=== PATIENT | female | born 1955 | race Caucasian/White ===

== ENCOUNTER 2016-10-22 21:23 | Emergency (ER) | payer OTHER ==
[2016-10-22 21:42] VITALS: BP 93/65; PULSE 97; O2SAT 95
--- NOTE | 2016-10-22 21:44 | ERPHSYRPT ---
- History of Present Illness Time Seen by Provider: 10/22/16 21:39 Source: patient Exam Limitations: no limitations Physician History: The patient is a 61-year-old female comes in complaining of a left earache for [address] Cabral on October 15 and was given drops to put in her ears. The pain has not gone away. She has a past medical history of hypothyroidism, COPD PD, GERD, and high cholesterol. Timing/Duration: gradual onset ENT Location: ear (L) Prearrival Treatment: prescription meds Modifying Factors: Improves With: nothing Associated Symptoms: ear pain (L) Allergies/Adverse Reactions: No Known Drug Allergies Allergy (Verified 08/02/16 06:52) Home Medications: Simvastatin 20Mg [Zocor 20Mg] 20 mg PO DAILY 02/28/12 [History] Hydrocodone Bit/Acetaminophen [Hydrocodon-Acetaminophn 10-325] 1 each PO Q6H PRN PRN 01/08/16 [History] Ipratropium/Albuterol Sulfate [Combivent Inhaler] 1 puff IH BID 01/08/16 [ History] Levothyroxine Sodium 50 Mcg [Synthroid 50 Mcg] 50 mcg PO DAILY 01/08/16 [ History] Potassium Chloride 8 meq PO DAILY 01/08/16 [History] Quetiapine Fumarate [Seroquel] 600 mg PO HS 01/08/16 [History] Venlafaxine HCl [Venlafaxine HCl ER] 150 mg PO DAILY 01/12/16 [History] Dicyclomine HCl [Bentyl] 10 mg PO TID 05/27/16 [History] Hx Tetanus, Diphtheria Vaccination/Date Given: Yes Hx Influenza Vaccination/Date Given: Yes Hx Pneumococcal Vaccination/Date Given: Yes - Review of Systems Constitutional: No Fever, No Chills Eyes: No Symptoms Ears, Nose, & Throat: Other (left ear pain) Respiratory: No Cough, No Dyspnea Cardiac: No Chest Pain, No Edema, No Syncope Abdominal/Gastrointestinal: No Abdominal Pain, No Nausea, No Vomiting, No Diarrhea Genitourinary Symptoms: No Dysuria Musculoskeletal: No Symptoms Skin: No Rash Neurological: No Dizziness, No Focal Weakness, No Sensory Changes Psychological: No Symptoms Endocrine: No Symptoms Hematologic/Lymphatic: No Symptoms Immunological/Allergic: No Symptoms All Other Systems: Reviewed and Negative - Past Medical History Pertinent Past Medical History: Yes Neurological History: No Pertinent History ENT History: No Pertinent History Cardiac History: High Cholesterol Respiratory History: Asthma Endocrine Medical History: Hypothyroidism Musculoskeletal History: Arthritis, Fractures, Other GI Medical History: Gallbladder Disease, GI Bleed, Hemorrhoids, Other History: No Pertinent History Psycho-Social History: Bipolar, Depression Female Reproductive Disorders: No Pertinent History Other Medical History: BACK AND LEG PAIN - Past Surgical History Past Surgical History: Yes Neuro Surgical History: No Pertinent History Cardiac: No Pertinent History Respiratory: No Pertinent History Gastrointestinal: Hernia Repair Genitourinary: No Pertinent History Musculoskeletal: Orthopedic Surgery Female Surgical History: No Pertinent History Other Surgical History: right ankle, - Social History Smoking Status: Never smoker Exposure to second hand smoke: Yes Alcohol Use: None Drug Use: none Patient Lives Alone: No Significant Family History: no pertinent family hx - Female History Hx Now: No - Physical Exam General Appearance: no apparent distress, alert Eye Exam: bilateral eye: normal inspection Ear Exam: right ear: auricle normal, canal normal, TM normal, left ear: TM bulging Nasal Exam: normal inspection Throat Exam: pharynx normal, moist mucus membranes, No tonsillar exudate Neck Exam: supple Cardiovascular/Respiratory Exam: normal breath sounds, regular rate/rhythm Abdominal Exam: non-tender, soft Neurologic Exam: alert, oriented x 3, sensation nml, No motor deficits Skin Exam: normal color, warm, dry SpO2 Interpretation: normal - Progress Progress: unchanged Counseled pt/family regarding: diagnosis - Departure Time of Disposition: 21:46 Departure Disposition: Home Clinical Impression: Otitis media Condition: Stable Critical Care Time: No Prescriptions: Amoxicillin/Potassium Clav [Augmentin 875-125 Tablet] 875 mg PO BID #20 tablet
[2016-10-22] MEDS ORDERED: Augmentin 875-125 Tablet PO ONE (21:48)
[2016-10-22] MEDS ORDERED: Augmentin 875-125 Tablet ONE (21:52)
== END 2016-10-22 22:10 | disposition home or self-care (01) ==
LOC: ED 21:23
DX: H66.92 Otitis media, unspecified, left ear (principal)
CPT/HCPCS: 99283; A9270-GY

== ENCOUNTER 2017-01-06 21:21 | Emergency (ER) | payer OTHER ==
[2017-01-06 21:55] LABS: BASOPHIL % 0.2 % (0.0-0.4); Eosinophil % 0.5 % (0.00-5.0); Granulocytes % 62.7 % (36.0-66.0); Lymphocytes % 25.8 % (24.0-44.0); Mean Cell Volume 94.4 fl (78-100); Mean Platelet Volume 10.2 fl (6-9.5); Monocytes % 10.8 % (0.0-12.0); Platelet Count 331 K/mm3 (150-450); Red Blood Count 3.75 M/mm3 (4.1-5.4); Red Cell Distribution Width 14.2 % (11.5-14.0); White Blood Count 10.5 K/mm3 (4.0-10.5)
[2017-01-06 21:56] LABS: Mean Corpuscular Hemoglobin 29.8 pg (26-32)
--- NOTE | 2017-01-06 22:05 | ERPHSYRPT ---
- History of Present Illness Time Seen by Provider: 01/06/17 21:37 Source: patient, family (son) Patient Subjective Stated Complaint: Pts family sts pt has had trouble with bipolar disorder x 7 months with decreased medication effectiveness. Son sts that pt has been manic for 12 days. Pt sts she has not slept at all in 12 days. Sts aviation neuropsychologist that was seeing her has been out on medical leave and the person seeing her now has only increased her meds. Family sts medications are ineffective. Son sts he lives with her. Also sts leg pain bilat from a door falling on her - family unsure of when this occurred. Triage Nursing Assessment: Pt alert, oriented, able to answer questions appropriately. Skin p/w/d, resps non-labored. Pt hyperverbal, unable to lay still. Pt with repetitive speech. Ambulatory to tx room, steady gait from wheelchair to bed noted. Physician History: CC: manic Hx: 61 y/o patient of Dr Cabral and [facility] with hx of bipolar disorder. She has been on meds thru [facility] but not sure names. States has not taken meds for the past 6 weeks. She has not been sleeping at all for the past 13 days. She has talked constantly, not making sense. Rambling speech. Son brought her for mental health evaluation as he knows she needs to be on some sort of medication. Severity of Symptoms-Max: moderate Severity of Symptoms-Current: moderate Allergies/Adverse Reactions: No Known Drug Allergies Allergy (Verified 08/02/16 06:52) Home Medications: Simvastatin 20Mg [Zocor 20Mg] 20 mg PO DAILY 02/28/12 [History] Hydrocodone Bit/Acetaminophen [Hydrocodon-Acetaminophn 10-325] 1 each PO Q6H PRN PRN 01/08/16 [History] Ipratropium/Albuterol Sulfate [Combivent Inhaler] 1 puff IH BID 01/08/16 [ History] Levothyroxine Sodium 50 Mcg [Synthroid 50 Mcg] 50 mcg PO DAILY 01/08/16 [ History] Potassium Chloride 8 meq PO DAILY 01/08/16 [History] Quetiapine Fumarate [Seroquel] 600 mg PO HS 01/08/16 [History] Venlafaxine HCl [Venlafaxine HCl ER] 150 mg PO DAILY 01/12/16 [History] Dicyclomine HCl [Bentyl] 10 mg PO TID 05/27/16 [History] Hx Tetanus, Diphtheria Vaccination/Date Given: Yes Hx Influenza Vaccination/Date Given: Yes Hx Pneumococcal Vaccination/Date Given: Yes Immunizations Up to Date: Yes - Past Medical History Pertinent Past Medical History: Yes Neurological History: No Pertinent History ENT History: No Pertinent History Cardiac History: High Cholesterol Respiratory History: Asthma Endocrine Medical History: Hypothyroidism Musculoskeletal History: Arthritis, Fractures, Other GI Medical History: Gallbladder Disease, GI Bleed, Hemorrhoids, Other History: No Pertinent History Psycho-Social History: Bipolar, Depression Female Reproductive Disorders: No Pertinent History Other Medical History: BACK AND LEG PAIN - Past Surgical History Past Surgical History: Yes Neuro Surgical History: No Pertinent History Cardiac: No Pertinent History Respiratory: No Pertinent History Gastrointestinal: Hernia Repair Genitourinary: No Pertinent History Musculoskeletal: Orthopedic Surgery Female Surgical History: No Pertinent History Other Surgical History: right ankle, - Social History Smoking Status: Never smoker Exposure to second hand smoke: No Alcohol Use: None Drug Use: none Patient Lives Alone: No Significant Family History: no pertinent family hx - Female History Hx Now: No - Review of Systems Constitutional: No Fever, No Chills Eyes: No Vision Changes Cardiac: No Chest Pain Abdominal/Gastrointestinal: No Abdominal Pain, No Vomiting Skin: No Rash Neurological: No Headache Psychological: Emotional Lability, Mood Changes, No Suicidal Ideations All Other Systems: Unable due to dementia (rambling disorganized speech) - Nursing Vital Signs Nursing Vital Signs: Initial Vital Signs Temperature 99.2 F Temperature Source Oral Pulse Rate 66 Respiratory Rate 16 Blood Pressure [Right Arm] 138/75 Pain Intensity 0 - Physical Exam General Appearance: alert, thin Eyes, Ears, Nose, Throat Exam: moist mucous membranes Neck Exam: normal inspection, supple Respiratory Exam: normal breath sounds Cardiovascular Exam: regular rate/rhythm Gastrointestinal/Abdominal Exam: soft, No tenderness, No distention Neurological Exam: alert Behavior/Eye Contact/Speech: alert & cooperative Thoughts/Hallucinations: delusions, flight of ideas, grandiose Skin Exam: warm, dry, rash (picking sores, scratches) SpO2 Interpretation: normal SpO2: 99 Oxygen Delivery: Room Air Comments: Disorganized thoughts, rambling pressured speech, appears manic. - Course Nursing assessment & vital signs reviewed: Yes EKG Interpreted by Me: RATE (49), Sinus Shai, NORMAL AXIS, NORMAL INTERVALS ( QTc 408), NORMAL QRS, NORMAL ST-T Ordered Tests: Active Orders 24 hr Category Date Time Status Clean Catch Urine Specimen STAT Care 01/06/17 21:37 Inactive EKG-ER Only STAT Care 01/06/17 21:37 Active Psychiatric Evaluation STAT Care 01/06/17 21:43 Active cath [Cath for Specimen-Straight] STAT Care 01/06/17 22:00 Active ACETAMINOPHEN Stat Lab 01/06/17 21:51 Completed CBC W DIFF Stat Lab 01/06/17 21:51 Completed CMP Stat Lab 01/06/17 21:51 Completed CULTURE,URINE Stat Lab 01/06/17 22:04 Received Ethyl Alcohol,Urine Stat Lab 01/06/17 22:04 Completed UA W/ MICROSCOPIC Stat Lab 01/06/17 22:04 Completed Urine Triage Profile Stat Lab 01/06/17 22:04 Completed Medication Summary Discontinued Medications Generic Name Dose Route Start Last Admin Trade Name Freq PRN Reason Stop Dose Admin Hydroxyzine HCl 25 mg 01/06/17 23:51 01/06/17 23:57 Atarax 25 Mg PO 01/06/17 23:52 25 mg STAT ONE Administration Hydroxyzine HCl Confirm 01/06/17 23:53 Atarax 25 Mg Administered 01/06/17 23:54 Dose 25 mg .ROUTE .STK-MED ONE Olanzapine 5 mg 01/06/17 23:51 01/06/17 23:58 Zyprexa Zydis 5 Mg PO 01/06/17 23:52 5 mg STAT ONE Administration Olanzapine Confirm 01/06/17 23:53 Zyprexa Zydis 5 Mg Administered 01/06/17 23:54 Dose 5 mg PO .STK-MED ONE Potassium Bicarbonate 50 meq 01/06/17 22:48 01/06/17 23:03 K-Lyte 25 Meq PO 01/06/17 22:49 50 meq STAT ONE Administration Potassium Bicarbonate Confirm 01/06/17 23:02 K-Lyte 25 Meq Administered 01/06/17 23:03 Dose 50 meq .ROUTE .STK-MED ONE Lab/Rad Data: Laboratory Result Diagrams 01/06/17 21:51 01/06/17 21:51 Laboratory Results 01/06/17 01/06/17 01/06/17 Range/Units 22:04 22:04 22:04 WBC (4.0-10.5) K/mm3 RBC (4.1-5.4) M/mm3 Hgb (12.0-16.0) gm/dl Hct (35-47) % MCV (78-100) fl MCH (26-32) pg MCHC (32-36) g/dl RDW (11.5-14.0) % Plt Count (150-450) K/mm3 MPV (6-9.5) fl Gran % (36.0-66.0) % Lymphocytes % (24.0-44.0) % Monocytes % (0.0-12.0) % Eosinophils % (0.00-5.0) % Basophils % (0.0-0.4) % Basophils # (0-0.4) Sodium (136-145) mEq/L Potassium (3.5-5.1) mEq/L Chloride (98-107) mEq/L Carbon Dioxide (21-32) mEq/L Anion Gap (5-15) MEQ/L BUN (9-20) mg/dL Creatinine (0.55-1.30) mg/dl Estimated GFR ML/MIN Glucose (70-110) MG/DL Calcium (8.5-10.1) mg/dL Total Bilirubin (0.2-1.0) mg/dL AST (15-37) U/L ALT (12-78) U/L Alkaline Phosphatase (46-116) U/L Serum Total Protein (6.4-8.2) gm/dL Albumin (3.4-5.0) g/dL Ur Collection Type CATH Urine Color YELLOW (YELLOW) Urine Appearance CLEAR (CLEAR) Urine pH 6.0 6.0 (5-6) Ur Specific [place] >=1.030 (1.005-1.025) Urine Protein 30 (Negative) Urine Glucose (UA) NEGATIVE (NEGATIVE) mg/dL Urine Ketones TRACE (NEGATIVE) Urine Nitrite NEGATIVE (NEGATIVE) Urine Bilirubin NEGATIVE (NEGATIVE) Urine Urobilinogen 1 (0-1) mg/dL Urine WBC (Auto) NEGATIVE (NEGATIVE) Urine RBC (Auto) TRACE-INTACT (0-5) Jose/ul Urine Microscopic RBC 0-2 (0-2) /HPF Ur Epithelial Cells RARE (FEW) /HPF Urine Bacteria FEW (NEGATIVE) /HPF Urine Mucus SLIGHT (NEGATIVE) /HPF Urine Opiates Level NEG. (NEGATIVE) Ur Methadone NEG. (NEGATIVE) Acetaminophen (10-30) ug/ml Urine Barbiturates NEG. (NEGATIVE) Ur Phencyclidine (PCP) NEG. (NEGATIVE) Urine Amphetamine NEG. (NEGATIVE) U Benzodiazepine Level NEG. (NEGATIVE) Urine Cocaine NEG. (NEGATIVE) Urine Marijuana (THC) NEG. (NEGATIVE) Urine Ethyl Alcohol 4 (0.00-20) mg/dl Specimen Received [id number] 01/06/17 01/06/17 Range/Units 21:51 21:51 WBC 10.5 (4.0-10.5) K/mm3 RBC 3.75 L (4.1-5.4) M/mm3 Hgb 11.2 L (12.0-16.0) gm/dl Hct 35.4 (35-47) % MCV 94.4 (78-100) fl MCH 29.8 (26-32) pg MCHC 31.6 L (32-36) g/dl RDW 14.2 H (11.5-14.0) % Plt Count 331 (150-450) K/mm3 MPV 10.2 H (6-9.5) fl Gran % 62.7 (36.0-66.0) % Lymphocytes % 25.8 (24.0-44.0) % Monocytes % 10.8 (0.0-12.0) % Eosinophils % 0.5 (0.00-5.0) % Basophils % 0.2 (0.0-0.4) % Basophils # 0.02 (0-0.4) Sodium 144 (136-145) mEq/L Potassium 3.0 L* (3.5-5.1) mEq/L Chloride 108 H (98-107) mEq/L Carbon Dioxide 25.2 (21-32) mEq/L Anion Gap 11.5 (5-15) MEQ/L BUN 16 (9-20) mg/dL Creatinine 1.22 (0.55-1.30) mg/dl Estimated GFR 48 ML/MIN Glucose 120 H (70-110) MG/DL Calcium 9.2 (8.5-10.1) mg/dL Total Bilirubin 0.70 (0.2-1.0) mg/dL AST 45 H (15-37) U/L ALT 28 (12-78) U/L Alkaline Phosphatase 74 (46-116) U/L Serum Total Protein 7.4 (6.4-8.2) gm/dL Albumin 3.7 (3.4-5.0) g/dL Ur Collection Type Urine Color (YELLOW) Urine Appearance (CLEAR) Urine pH (5-6) Ur Specific [place] (1.005-1.025) Urine Protein (Negative) Urine Glucose (UA) (NEGATIVE) mg/dL Urine Ketones (NEGATIVE) Urine Nitrite (NEGATIVE) Urine Bilirubin (NEGATIVE) Urine Urobilinogen (0-1) mg/dL Urine WBC (Auto) (NEGATIVE) Urine RBC (Auto) (0-5) Jose/ul Urine Microscopic RBC (0-2) /HPF Ur Epithelial Cells (FEW) /HPF Urine Bacteria (NEGATIVE) /HPF Urine Mucus (NEGATIVE) /HPF Urine Opiates Level (NEGATIVE) Ur Methadone (NEGATIVE) Acetaminophen < 2.0 L (10-30) ug/ml Urine Barbiturates (NEGATIVE) Ur Phencyclidine (PCP) (NEGATIVE) Urine Amphetamine (NEGATIVE) U Benzodiazepine Level (NEGATIVE) Urine Cocaine (NEGATIVE) Urine Marijuana (THC) (NEGATIVE) Urine Ethyl Alcohol (0.00-20) mg/dl Specimen Received - Progress Progress Note: 01/06/17 22:08 Spoke to [facility]. No beds there so will get tele consult. Also no beds available at [facility]. 01/06/17 23:52 The patient was seen by [facility] via tele consult. She was somewhat uncooperative. They advised she appears gravely disabled and needs psychiatric attention. Pt upset and angry. They advised emergency skilled nursing for control of her topher and bipolar disorder. Zydis and vistaril given here. 01/07/17 00:01 Spoke to son Yasmani who agrees with plan. 01/07/17 01:42 Pt calm after zydis and vistaril po. Await [facility] 01/07/17 02:58 Patient accepted at [facility] per Dr Lorena Palmer. Counseled pt/family regarding: diagnosis, need for follow-up - Departure Time of Disposition: 02:59 Departure Disposition: Transfer ([facility]) Clinical Impression: Manic episode, severe, without psychotic symptoms Bipolar disorder (manic depression) Qualifiers: Active/Remission status: currently active Current bipolar episode type: manic Current episode severity: moderate Qualified Code(s): F31.12 - Bipolar disorder , current episode manic without psychotic features, moderate Condition: Fair Critical Care Time: No Referrals: DESTINY CABRAL [Primary Care Provider] -
[2017-01-06 22:19] LABS: COMPLETE URINE MICROSCOPIC? YES; Collection Type CATH; Mucus SLIGHT /HPF (NEGATIVE)
[2017-01-06 22:20] LABS: ADD URINE CULTURE? YES (NO); Bacteria FEW /HPF (NEGATIVE); Epithelial Cells RARE /HPF (FEW)
[2017-01-06 22:26] LABS: ALBUMIN 3.7 g/dL (3.4-5.0); ALKALINE PHOSPHATASE 74 U/L (46-116); ANION GAP 11.5 MEQ/L (5-15); BLOOD UREA NITROGEN 16 mg/dL (9-20); CHLORIDE 108 mEq/L (98-107); Carbon Dioxide 25.2 mEq/L (21-32); Glucose 120 MG/DL (70-110); SGOT/AST 45 U/L (15-37); SGPT/ALT 28 U/L (12-78); SODIUM 144 mEq/L (136-145); Total Protein 7.4 gm/dL (6.4-8.2)
[2017-01-06 22:45] LABS: ACETAMINOPHEN < 2.0 ug/ml (10-30)
[2017-01-06] MEDS ORDERED: K-LYTE 25 MEQ PO ONE (22:48)
[2017-01-06] MEDS ORDERED: K-LYTE 25 MEQ ONE (23:02)
[2017-01-06] MEDS ORDERED: Zyprexa Zydis 5 MG PO ONE ×2 (23:51→23:53)
[2017-01-06] MEDS ORDERED: ATARAX 25 MG PO ONE (23:51)
[2017-01-06] MEDS ORDERED: ATARAX 25 MG ONE (23:53)
[2017-01-07 01:59] VITALS: PULSE 66
[2017-01-07 04:59] VITALS: BP 87/50; O2SAT 96
== END 2017-01-07 03:55 | disposition short-term general hospital (02) ==
LOC: ED 21:21
DX: F31.12 Bipolar disorder, current episode manic without psychotic features, moderate (principal)
CPT/HCPCS: 36415; 80053; 80307; 80320; 81000; 83986; 85025; 87086; 90791; 93005; 99285; G0481; P9612; Q3014; A9270-GY

== ENCOUNTER 2018-01-05 19:11 | Emergency (ER) | payer OTHER ==
[2018-01-05 19:30] VITALS: BP 114/86; PULSE 78; O2SAT 98
--- NOTE | 2018-01-05 19:42 | ERPHSYRPT ---
- History of Present Illness Time Seen by Provider: 01/05/18 19:41 Source: patient Exam Limitations: no limitations Patient Subjective Stated Complaint: pt sustained laceration to right second finger distal to mip joint; pt states she was washing dishes and cut her finger on a glass at approx 1800. Triage Nursing Assessment: pt a&o x3; skin p, w, & d; bleeding controlled upon arrival per bandage applied by ems at home; ambulated to room per self; no other distress noted. Physician History: The patient is a 62-year-old right-handed female who complains of cutting her skin on her right index finger on a piece of glass while washing dishes prior to arrival. It kept bleeding so she wanted to come in. She does not know when her last tetanus vaccination was given. She denies numbness or tingling. Her past medical history is significant for COPD, kidney disease, GERD, hypothyroidism, and bipolar. Timing/Duration: today, hour(s) (1), sudden Quality: other (laceration) Severity: mild Location: hands (right index finger) Possible Causes: other (glass) Associated Symptoms: denies symptoms Allergies/Adverse Reactions: No Known Drug Allergies Allergy (Verified 01/05/18 19:30) Home Medications: Simvastatin 20Mg [Zocor 20Mg] 20 mg PO DAILY 02/28/12 [History] Hydrocodone Bit/Acetaminophen [Hydrocodon-Acetaminophn 10-325] 1 each PO Q6H PRN PRN 01/08/16 [History] Ipratropium/Albuterol Sulfate [Combivent Inhaler] 1 puff IH BID 01/08/16 [ History] Levothyroxine Sodium 50 Mcg [Synthroid 50 Mcg] 50 mcg PO DAILY 01/08/16 [ History] Potassium Chloride 8 meq PO DAILY 01/08/16 [History] Quetiapine Fumarate [Seroquel] 600 mg PO HS 01/08/16 [History] Venlafaxine HCl [Venlafaxine HCl ER] 150 mg PO DAILY 01/12/16 [History] Dicyclomine HCl [Bentyl] 10 mg PO TID 05/27/16 [History] Hx Tetanus, Diphtheria Vaccination/Date Given: No Hx Influenza Vaccination/Date Given: Yes Hx Pneumococcal Vaccination/Date Given: Yes Immunizations Up to Date: No - Review of Systems Constitutional: No Fever, No Chills Eyes: No Symptoms Ears, Nose, & Throat: No Symptoms Respiratory: No Cough, No Dyspnea Cardiac: No Chest Pain, No Edema, No Syncope Abdominal/Gastrointestinal: No Abdominal Pain, No Nausea, No Vomiting, No Diarrhea Genitourinary Symptoms: No Dysuria Musculoskeletal: No Back Pain, No Neck Pain Skin: Other (laceration) Neurological: No Dizziness, No Focal Weakness, No Sensory Changes Psychological: No Symptoms Endocrine: No Symptoms Hematologic/Lymphatic: No Symptoms Immunological/Allergic: No Symptoms All Other Systems: Reviewed and Negative - Past Medical History Pertinent Past Medical History: Yes Neurological History: No Pertinent History ENT History: No Pertinent History Cardiac History: High Cholesterol Respiratory History: Asthma Endocrine Medical History: Hypothyroidism Musculoskeletal History: Arthritis, Fractures, Other GI Medical History: Gallbladder Disease, GI Bleed, Hemorrhoids, Other History: No Pertinent History Psycho-Social History: Bipolar, Depression Female Reproductive Disorders: No Pertinent History Other Medical History: BACK AND LEG PAIN - Past Surgical History Past Surgical History: Yes Neuro Surgical History: No Pertinent History Cardiac: No Pertinent History Respiratory: No Pertinent History Gastrointestinal: Hernia Repair Genitourinary: No Pertinent History Musculoskeletal: Orthopedic Surgery Female Surgical History: No Pertinent History Other Surgical History: right ankle, - Social History Smoking Status: Never smoker Exposure to second hand smoke: No Alcohol Use: None Drug Use: none Patient Lives Alone: No Significant Family History: no pertinent family hx - Female History Hx Last Menstrual Period: postmenopausal - Nursing Vital Signs Nursing Vital Signs: Initial Vital Signs Temperature 98 F 01/05/18 19:23 Pulse Rate 78 01/05/18 19:23 Respiratory Rate 18 01/05/18 19:23 Blood Pressure 114/86 01/05/18 19:23 O2 Sat by Pulse Oximetry 98 01/05/18 19:23 Pain Scale Pain Intensity 0 - Physical Exam General Appearance: no apparent distress, alert Eye Exam: PERRL/EOMI, eyes nml inspection Ears, Nose, Throat Exam: normal ENT inspection, pharynx normal, moist mucous membranes Neck Exam: normal inspection, non-tender, supple, full range of motion Respiratory Exam: normal breath sounds, lungs clear, No respiratory distress Cardiovascular Exam: regular rate/rhythm, normal heart sounds Gastrointestinal/Abdomen Exam: soft, mass, No tenderness Pelvic Exam: not done Rectal Exam: not done Back Exam: normal inspection, normal range of motion, No CVA tenderness, No vertebral tenderness Extremity Exam: normal inspection, normal range of motion Neurologic Exam: alert, oriented x 3, cooperative, normal mood/affect, sensation nml, No motor deficits Skin Exam: laceration (small avulsion laceration over right 2nd digit IP joint.) SpO2 Interpretation: normal SpO2: 98 Oxygen Delivery: Room Air - Progress Progress: unchanged Progress Note: 01/05/18 20:08 avulsion laceration that does not require sutures. - Departure Time of Disposition: 20:08 Departure Disposition: Home Clinical Impression: Laceration Condition: Stable Critical Care Time: No Referrals: JULES BRIGGS [Primary Care Provider] - Additional Instructions: You have a small laceration over your right index finger. No stitches were given. Keep the bandage on for 1-2 days. After the bandage is removed, apply a waterproof bandage over the wound daily until healed. You were also given a tetanus vaccination in the ER. Follow-up with your primary care doctor in 1-2 days.
[2018-01-05] MEDS ORDERED: Adacel Vial IM ONE ×2 (20:09→20:10)
== END 2018-01-05 20:19 | disposition home or self-care (01) ==
LOC: ED 19:11
DX: S61.210A Laceration without foreign body of right index finger without damage to nail, initial encounter (principal); W25.XXXA Contact with sharp glass, initial encounter; Y93.G1 Activity, food preparation and clean up; Y92.000 Kitchen of unspecified non-institutional (private) residence as the place of occurrence of the external cause
CPT/HCPCS: 90471; 90715; 99283

== ENCOUNTER 2018-11-02 13:14 | Observation (INO) | payer OTHER ==
[2018-11-02] MEDS ORDERED: Sodium Chloride 0.9% 1000 ML 1,000 ML IV SCH (13:45)
--- NOTE | 2018-11-02 13:51 | ERPHSYRPT ---
- History of Present Illness Time Seen by Provider: 11/02/18 13:34 Historian: family, other (son) Exam Limitations: other (pt has severe bipolar dx, depression, has very minimal verbal contact for long time according to her son.) Patient Subjective Stated Complaint: pt here for constipation for a a month now , she laxative friday and sat, and has had one bm today, and pt was dirty with stool when arrived, Triage Nursing Assessment: pt is nonverbal to staff, son states she is going through bipolar depression and son states her meds are not working and she has apt with mental health on the 4th Physician History: Pt apparently did not have bowel movement for 1.5 months, since she was discharged from Psychiatry, where she was treated for severe Bipolar disease and Depression. Her son has been taking care of her, gave her OTC laxative 3 days ago, and had some stool this morning in the shower. He denies vomiting, fever, patient denies abdominal pain. She is responding verbally, but very limited. Son gloria bloody stools, urinary complaints, other issues, she has been eating and drinking apparently. Timing/Duration: week(s) (6) Activities at Onset: none Quality: other (denies pain) Severity of Pain-Max: none Severity of Pain-Current: none Modifying Factors: Improves With: nothing Associated Symptoms: other (constipation) Previous symptoms: no prior history Allergies/Adverse Reactions: No Known Drug Allergies Allergy (Verified 11/02/18 13:29) Home Medications: Simvastatin 20Mg [Zocor 20Mg] 20 mg PO DAILY 02/28/12 [History] Ipratropium/Albuterol Sulfate [Combivent Inhaler] 1 puff IH BID 01/08/16 [ History] Levothyroxine Sodium 50 Mcg [Synthroid 50 Mcg] 88 mcg PO DAILY 01/08/16 [ History] Dicyclomine HCl [Bentyl] 10 mg PO TID 05/27/16 [History] Divalproex Sodium 250 mg [Divalproex DR 250 mg Tab] 11/02/18 [History] Lurasidone HCl [Latuda] 120 mg DAILY 11/02/18 [History] Quetiapine Fumarate 200 mg DAILY 11/02/18 [History] Sertraline HCl 100 mg DAILY 11/02/18 [History] Hx Tetanus, Diphtheria Vaccination/Date Given: No Hx Influenza Vaccination/Date Given: Yes Hx Pneumococcal Vaccination/Date Given: No Immunizations Up to Date: Yes - Review of Systems Constitutional: No Symptoms Abdominal/Gastrointestinal: Constipation All Other Systems: Unable due to condition (chronic mental condition, severe psychiatric disorder, very limited verbal responses, history taken from her son. ) - Past Medical History Pertinent Past Medical History: Yes Neurological History: No Pertinent History ENT History: No Pertinent History Cardiac History: High Cholesterol Respiratory History: Asthma Endocrine Medical History: Hypothyroidism Musculoskeletal History: Arthritis, Fractures, Other GI Medical History: Gallbladder Disease, GI Bleed, Hemorrhoids, Other History: No Pertinent History Psycho-Social History: Bipolar, Depression Female Reproductive Disorders: No Pertinent History Other Medical History: BACK AND LEG PAIN - Past Surgical History Past Surgical History: Yes Neuro Surgical History: No Pertinent History Cardiac: No Pertinent History Respiratory: No Pertinent History Gastrointestinal: Hernia Repair Genitourinary: No Pertinent History Musculoskeletal: Orthopedic Surgery Female Surgical History: No Pertinent History Other Surgical History: right ankle, - Social History Smoking Status: Never smoker Exposure to second hand smoke: Yes Alcohol Use: None Drug Use: none Patient Lives Alone: No Significant Family History: no pertinent family hx - Female History Hx Last Menstrual Period: post Hx Now: No - Nursing Vital Signs Nursing Vital Signs: Initial Vital Signs Temperature 97.2 F 11/02/18 13:18 Pulse Rate 75 11/02/18 13:18 Respiratory Rate 16 11/02/18 13:18 Blood Pressure 135/86 11/02/18 13:18 O2 Sat by Pulse Oximetry 96 11/02/18 13:18 Pain Scale Pain Intensity 0 - Physical Exam General Appearance: no apparent distress Eye Exam: eyes nml inspection Ears, Nose, Throat Exam: normal ENT inspection, pharynx normal, moist mucous membranes Neck Exam: normal inspection, non-tender, supple, No JVD Respiratory Exam: normal breath sounds, lungs clear, No chest tenderness Cardiovascular Exam: regular rate/rhythm, murmur (2/6 left parasternal systolic murmur) Gastrointestinal/Abdomen Exam: soft, normal bowel sounds, No tenderness, No distention, No mass, No guarding, No ecchymosis, No rebound, No hernia, No organomegaly Rectal Exam: normal rectal tone, other (no fecal impaction, large amount of soft , dark, green stool in rectum), No mass, No black stool, No blood, No tenderness Extremity Exam: normal inspection Neurologic Exam: alert, other (severely withdrawn, with very limited verbal contact.) Skin Exam: normal color, warm, dry, No rash, No petechiae Lymphatic Exam: No adenopathy SpO2 Interpretation: normal SpO2: 96 O2 Delivery: Room Air - Course Nursing assessment & vital signs reviewed: Yes - CT Exams Abdomen/Pelvis CT Interpretation: Negative, Tele-radiologist Report, Other (fecal impaction) Ordered Tests: Active Orders 24 hr Category Date Time Status IV Insertion STAT Care 11/02/18 13:43 Active ABDOMEN AND PELVIS W/0 CONTRAS [CT] Stat Exams 11/02/18 14:19 Completed CBC W DIFF Stat Lab 11/02/18 14:00 Completed CMP Stat Lab 11/02/18 14:00 Completed LIPASE Stat Lab 11/02/18 14:00 Completed Lactic Acid Stat Lab 11/02/18 13:43 Results MAG [MAGNESIUM] Stat Lab 11/02/18 14:00 Completed Occult Blood, Other Screening Stat Lab 11/02/18 14:20 Completed PROTIME WITH INR Stat Lab 11/02/18 14:00 Completed UA W/RFX UR CULTURE Stat Lab 11/02/18 14:20 Received Urine Triage Profile Stat Lab 11/02/18 14:20 Completed Medication Summary Generic Name Dose Route Start Last Admin Trade Name Freq PRN Reason Stop Dose Admin Sodium Chloride 1,000 mls @ 100 mls/hr 11/02/18 13:45 11/02/18 15:42 Sodium Chloride 0.9% 1000 Ml IV 12/02/18 13:44 1,000 mls/hr .Q10H AMADO Infusion Potassium Chloride 20 meq in 100 mls @ 50 mls/hr 11/02/18 14:56 11/02/18 15: 21 Potassium Chloride 20 Meq In Water 100ml IV 11/02/18 16:55 50 mls/hr STAT ONE Administration Discontinued Medications Generic Name Dose Route Start Last Admin Trade Name Freq PRN Reason Stop Dose Admin Potassium Chloride Confirm 11/02/18 15:07 Potassium Chloride 20 Meq In Water 100ml Administered 11/02/18 15:08 Dose 100 mls @ ud IV .STK-MED ONE Potassium Bicarbonate 50 meq 11/02/18 15:05 11/02/18 15:21 K-Lyte 25 Meq PO 11/02/18 15:06 50 meq STAT ONE Administration Potassium Bicarbonate Confirm 11/02/18 15:07 K-Lyte 25 Meq Administered 11/02/18 15:08 Dose 50 meq .ROUTE .STK-MED ONE Potassium Chloride 40 meq 11/03/18 10:00 Potassium Chl 40 Meq/30 Ml Oral Solution PO 12/03/18 09:59 DAILY AMADO Potassium Chloride 40 meq 11/02/18 15:03 11/02/18 15:22 Klor Con 10 Meq PO 11/02/18 15:04 Not Given STAT ONE Lab/Rad Data: Laboratory Result Diagrams 11/02/18 14:00 11/02/18 14:00 Laboratory Results 11/02/18 11/02/18 11/02/18 Range/Units 14:20 14:20 14:00 WBC (4.0-10.5) K/mm3 RBC (4.1-5.4) M/mm3 Hgb (12.0-16.0) gm/dl Hct (35-47) % MCV (78-100) fl MCH (26-32) pg MCHC (32-36) g/dl RDW (11.5-14.0) % Plt Count (150-450) K/mm3 MPV (6-9.5) fl Gran % (36.0-66.0) % Eos # (Auto) (0-0.5) Absolute Lymphs (auto) (1.0-4.6) Absolute Monos (auto) (0.0-1.3) Lymphocytes % (24.0-44.0) % Monocytes % (0.0-12.0) % Eosinophils % (0.00-5.0) % Basophils % (0.0-0.4) % Absolute Granulocytes (1.4-6.9) Basophils # (0-0.4) PT (9.95-12.35) SECONDS INR (0.8-3.0) Sodium (137-145) mmol/L Potassium (3.5-5.1) mmol/L Chloride (98-107) mmol/L Carbon Dioxide (22-30) mmol/L Anion Gap (5-15) MEQ/L BUN (7-17) mg/dL Creatinine (0.52-1.04) mg/dL Estimated GFR ML/MIN Glucose (74-106) mg/dL Lactic Acid (0.4-2.0) Calcium (8.4-10.2) mg/dL Magnesium 1.9 (1.6-2.3) mg/dL Total Bilirubin (0.2-1.3) mg/dL AST (14-36) U/L ALT (0-35) U/L Alkaline Phosphatase (38-126) U/L Serum Total Protein (6.3-8.2) g/dL Albumin (3.5-5.0) g/dL Lipase (23-300) U/L Stool Occult Blood NEGATIVE (Negative) Urine Opiates Level NEGATIVE (NEGATIVE) Ur Methadone NEGATIVE (NEGATIVE) Urine Barbiturates NEGATIVE (NEGATIVE) Ur Phencyclidine (PCP) NEGATIVE (NEGATIVE) Urine Amphetamine NEGATIVE (NEGATIVE) U Benzodiazepine Level NEGATIVE (NEGATIVE) Urine Cocaine NEGATIVE (NEGATIVE) Urine Marijuana (THC) NEGATIVE (NEGATIVE) 11/02/18 11/02/18 11/02/18 Range/Units 14:00 14:00 14:00 WBC 7.2 (4.0-10.5) K/mm3 RBC 4.12 (4.1-5.4) M/mm3 Hgb 13.6 (12.0-16.0) gm/dl Hct 41.0 (35-47) % MCV 99.5 (78-100) fl MCH 33.0 H (26-32) pg MCHC 33.2 (32-36) g/dl RDW 12.6 (11.5-14.0) % Plt Count 197 (150-450) K/mm3 MPV 9.8 H (6-9.5) fl Gran % 58.7 (36.0-66.0) % Eos # (Auto) 0.03 (0-0.5) Absolute Lymphs (auto) 2.25 (1.0-4.6) Absolute Monos (auto) 0.69 (0.0-1.3) Lymphocytes % 31.2 (24.0-44.0) % Monocytes % 9.6 (0.0-12.0) % Eosinophils % 0.4 (0.00-5.0) % Basophils % 0.1 (0.0-0.4) % Absolute Granulocytes 4.24 (1.4-6.9) Basophils # 0.01 (0-0.4) PT 13.5 H (9.95-12.35) SECONDS INR 1.16 (0.8-3.0) Sodium 140 (137-145) mmol/L Potassium 2.4 L* (3.5-5.1) mmol/L Chloride 104 (98-107) mmol/L Carbon Dioxide 28 (22-30) mmol/L Anion Gap 10.8 (5-15) MEQ/L BUN 7 (7-17) mg/dL Creatinine 0.73 (0.52-1.04) mg/dL Estimated GFR > 60.0 ML/MIN Glucose 103 (74-106) mg/dL Lactic Acid (0.4-2.0) Calcium 8.9 (8.4-10.2) mg/dL Magnesium (1.6-2.3) mg/dL Total Bilirubin 0.50 (0.2-1.3) mg/dL AST 11 L (14-36) U/L ALT 11 (0-35) U/L Alkaline Phosphatase 59 (38-126) U/L Serum Total Protein 6.3 (6.3-8.2) g/dL Albumin 3.2 L (3.5-5.0) g/dL Lipase 30 (23-300) U/L Stool Occult Blood (Negative) Urine Opiates Level (NEGATIVE) Ur Methadone (NEGATIVE) Urine Barbiturates (NEGATIVE) Ur Phencyclidine (PCP) (NEGATIVE) Urine Amphetamine (NEGATIVE) U Benzodiazepine Level (NEGATIVE) Urine Cocaine (NEGATIVE) Urine Marijuana (THC) (NEGATIVE) 11/02/18 Range/Units 13:43 WBC (4.0-10.5) K/mm3 RBC (4.1-5.4) M/mm3 Hgb (12.0-16.0) gm/dl Hct (35-47) % MCV (78-100) fl MCH (26-32) pg MCHC (32-36) g/dl RDW (11.5-14.0) % Plt Count (150-450) K/mm3 MPV (6-9.5) fl Gran % (36.0-66.0) % Eos # (Auto) (0-0.5) Absolute Lymphs (auto) (1.0-4.6) Absolute Monos (auto) (0.0-1.3) Lymphocytes % (24.0-44.0) % Monocytes % (0.0-12.0) % Eosinophils % (0.00-5.0) % Basophils % (0.0-0.4) % Absolute Granulocytes (1.4-6.9) Basophils # (0-0.4) PT (9.95-12.35) SECONDS INR (0.8-3.0) Sodium (137-145) mmol/L Potassium (3.5-5.1) mmol/L Chloride (98-107) mmol/L Carbon Dioxide (22-30) mmol/L Anion Gap (5-15) MEQ/L BUN (7-17) mg/dL Creatinine (0.52-1.04) mg/dL Estimated GFR ML/MIN Glucose (74-106) mg/dL Lactic Acid 2.3 H (0.4-2.0) Calcium (8.4-10.2) mg/dL Magnesium (1.6-2.3) mg/dL Total Bilirubin (0.2-1.3) mg/dL AST (14-36) U/L ALT (0-35) U/L Alkaline Phosphatase (38-126) U/L Serum Total Protein (6.3-8.2) g/dL Albumin (3.5-5.0) g/dL Lipase (23-300) U/L Stool Occult Blood (Negative) Urine Opiates Level (NEGATIVE) Ur Methadone (NEGATIVE) Urine Barbiturates (NEGATIVE) Ur Phencyclidine (PCP) (NEGATIVE) Urine Amphetamine (NEGATIVE) U Benzodiazepine Level (NEGATIVE) Urine Cocaine (NEGATIVE) Urine Marijuana (THC) (NEGATIVE) - Progress Progress: improved Progress Note: 11/02/18 15:58 Pt was started on iv fluids, and potassium replacement, she has been afebrile, no severe pain or difficulty breathing, she has been stable, called Dr Manuel, discussed her case and current condition with him, agreed to admit her for observation. Patient and her son were informed, and agreed. Discussed with : Anu Will see patient in: hospital (observation) Counseled pt/family regarding: lab results, diagnosis, rad results - Departure Departure Disposition: Observation Clinical Impression: Fecal impaction in rectum, Hypokalemia Condition: Fair Critical Care Time: Yes Critical Care Time(excluding separately billable procedures): 30-74 minutes Referrals: ERNST MANUEL MD [Primary Care Provider] - Instructions: Constipation, Adult (DC)
[2018-11-02 14:07] LABS: BASOPHIL % 0.1 % (0.0-0.4); Basophil (Absolute #) 0.01 (0-0.4); Eosinophil % 0.4 % (0.00-5.0); Eosinophil (Absolute #) 0.03 (0-0.5); Granulocyte Absolute (ANC) 4.24 (1.4-6.9); Granulocytes % 58.7 % (36.0-66.0); Hemoglobin 13.6 gm/dl (12.0-16.0); Lymphocyte (Absolute #) 2.25 (1.0-4.6); Lymphocytes % 31.2 % (24.0-44.0); Mean Cell Volume 99.5 fl (78-100); Mean Corpuscular Hgb Concent. 33.2 g/dl (32-36); Mean Platelet Volume 9.8 fl (6-9.5); Monocyte (Absolute #) 0.69 (0.0-1.3); Monocytes % 9.6 % (0.0-12.0); Platelet Count 197 K/mm3 (150-450); Red Blood Count 4.12 M/mm3 (4.1-5.4); Red Cell Distribution Width 12.6 % (11.5-14.0); White Blood Count 7.2 K/mm3 (4.0-10.5)
[2018-11-02] MEDS ORDERED: Sodium Chloride 0.9% 1000 ML 1,000 ML ONE (14:13)
[2018-11-02 14:16] LABS: Lactic Acid 2.3 (0.4-2.0)
[2018-11-02 14:18] LABS: ALBUMIN 3.2 g/dL (3.5-5.0); ALKALINE PHOSPHATASE 59 U/L (38-126); ANION GAP 10.8 MEQ/L (5-15); BLOOD UREA NITROGEN 7 mg/dL (7-17); CHLORIDE 104 mmol/L (98-107); Calcium 8.9 mg/dL (8.4-10.2); Carbon Dioxide 28 mmol/L (22-30); Creatinine 1 0.73 mg/dL (0.52-1.04); Glucose 103 mg/dL (74-106); LIPASE 30 U/L (23-300); SGOT/AST 11 U/L (14-36); SGPT/ALT 11 U/L (0-35); SODIUM 140 mmol/L (137-145); Total Protein 6.3 g/dL (6.3-8.2)
[2018-11-02 14:28] LABS: Potassium 2.4 mmol/L (3.5-5.1)
[2018-11-02 14:33] LABS: INR 1.16 (0.8-3.0); PROTIME 13.5 SECONDS (9.95-12.35)
--- NOTE | 2018-11-02 14:54 | XRAY ---
Indication: Constipation 2 weeks. Multiple contiguous axial images obtained through the abdomen and pelvis without contrast as ordered. Comparison: May 05, 2016. Lung bases demonstrates minimal bibasilar atelectasis/scarring. No infiltrate or effusion. Heart is not enlarged. Stable moderate paraesophageal hiatal hernia. Noncontrasted stomach and bowel loops appear nonobstructed. There is now moderate fecal debris predominantly in the ascending and transverse colon. New large rectal fecal impaction. Stable 1.7 cm gallstone. Remaining liver, gallbladder, pancreas, spleen, adrenal glands, kidneys, ureters, bladder, and uterus appear unremarkable for noncontrast exam. Stable mild aortoiliac calcifications without AAA. Osseous structures intact again with mild degenerative changes throughout the spine. Stable midline ventral hernia repair with intact mesh graft. Impression: 1. New fecal stasis including rectal impaction. 2. Stable gallstone and paraesophageal hiatal hernia. 3. Remaining CT abdomen/pelvis without contrast exam is negative. CT DI 8.40
[2018-11-02] MEDS ORDERED: POTASSIUM CHLORIDE 20 mEq IN WATER 100ML 20 MEQ/100 ML BAG IV ONE (14:56)
[2018-11-02 14:59] LABS: Amphetamine,Urine NEGATIVE (NEGATIVE); Barbiturate,Urine NEGATIVE (NEGATIVE); Benzodiazepine,Urine NEGATIVE (NEGATIVE); Cocaine,Urine NEGATIVE (NEGATIVE); Methadone,Urine NEGATIVE (NEGATIVE); Opiate,Urine NEGATIVE (NEGATIVE); PCP,Urine NEGATIVE (NEGATIVE); THC,Urine NEGATIVE (NEGATIVE)
[2018-11-02] MEDS ORDERED: Klor Con 10 MEQ PO ONE (15:03)
[2018-11-02] MEDS ORDERED: K-LYTE 25 MEQ PO ONE (15:05)
[2018-11-02] MEDS ORDERED: K-LYTE 25 MEQ ONE (15:07)
[2018-11-02] MEDS ORDERED: POTASSIUM CHLORIDE 20 mEq IN WATER 100ML 100 ML IV ONE (15:07)
[2018-11-02] MEDS ORDERED: Sodium Chloride 0.9% 1000 ML 1,000 ML IV STA (16:00)
[2018-11-02] MEDS ORDERED: Zofran 4 MG/2 ML VIAL IV PRN ×2 (16:01→18:59)
[2018-11-02] MEDS ORDERED: Sodium Chloride 0.9% W/ 20 mEq KCl/LITER 1,000 ML IV SCH (16:15)
[2018-11-02 16:56] LABS: Appearance SLIGHTLY CLOUDY (CLEAR); Bacteria FEW /HPF (NEGATIVE); Bilirubin NEGATIVE (NEGATIVE); Blood NEGATIVE Ery/ul (0-5); Glucose NEGATIVE (NEGATIVE); Hyaline Casts >50 /LPF (0-2); Ketones NEGATIVE (NEGATIVE); Leukocyte Esterase SMALL (NEGATIVE); Mucus SLIGHT /HPF (NEGATIVE); Nitrite POSITIVE (NEGATIVE); Protein,Urine Dip NEGATIVE (Negative); Specific Gravity 1.013 (1.005-1.025); Urobilinogen 4 mg/dL (0-1); WBC 26-50 /HPF (0-5)
[2018-11-02] MEDS ORDERED: ROCEPHIN 1 Gm-D5w 50 ml Bag** 1 G/50 ML IVPB IV SCH (20:00)
[2018-11-02] MEDS: ZOCOR 20MG PO SCH (21:02)
[2018-11-03 06:12] LABS: BASOPHIL % 0.2 % (0.0-0.4); Basophil (Absolute #) 0.02 (0-0.4); Eosinophil % 0.5 % (0.00-5.0); Eosinophil (Absolute #) 0.06 (0-0.5); Granulocyte Absolute (ANC) 9.86 (1.4-6.9); Granulocytes % 76.3 % (36.0-66.0); Hematocrit 40.3 % (35-47); Lymphocytes % 13.9 % (24.0-44.0); Mean Cell Volume 102.3 fl (78-100); Mean Corpuscular Hgb Concent. 32.3 g/dl (32-36); Mean Platelet Volume 9.9 fl (6-9.5); Monocyte (Absolute #) 1.17 (0.0-1.3); Monocytes % 9.1 % (0.0-12.0); Platelet Count 189 K/mm3 (150-450); Red Blood Count 3.94 M/mm3 (4.1-5.4); Red Cell Distribution Width 12.6 % (11.5-14.0); White Blood Count 12.9 K/mm3 (4.0-10.5)
[2018-11-03 06:17] LABS: Mean Corpuscular Hemoglobin 32.9 pg (26-32)
[2018-11-03 06:26] LABS: ANION GAP 8.8 MEQ/L (5-15); BLOOD UREA NITROGEN 6 mg/dL (7-17); CHLORIDE 105 mmol/L (98-107); Calcium 8.9 mg/dL (8.4-10.2); Carbon Dioxide 29 mmol/L (22-30); Creatinine 1 0.76 mg/dL (0.52-1.04); Glucose 111 mg/dL (74-106); SODIUM 139 mmol/L (137-145)
[2018-11-03 06:36] LABS: Potassium 2.8 mmol/L (3.5-5.1)
[2018-11-03] MEDS ORDERED: MEDICATION INTERVENTION MC SCH (07:00)
[2018-11-03] MEDS: POTASSIUM CHLORIDE 20 mEq IN WATER 100ML 20 MEQ/100 ML BAG IV SCH ×2 (07:48→10:29)
[2018-11-03] MEDS ORDERED: POTASSIUM CHL 40 MEQ/30 ML ORAL SOLUTION PO SCH ×2 (10:00)
[2018-11-03] MEDS ORDERED: LURASIDONE HCL 120 MG PO SCH (10:00)
[2018-11-03] MEDS ORDERED: SYNTHROID 50 MCG PO SCH (10:00)
[2018-11-03] MEDS: Klor Con 10 MEQ PO SCH (10:33)
[2018-11-03] MEDS: SYNTHROID 88 MCG PO SCH (10:35)
--- NOTE | 2018-11-03 11:42 | PCM.HP ---
History of Present Illness - Chief Complaint Chief Complaint: Hypokalemia, Fecal Impaction for 3 days History of Present Illness: is a 63 year old female.Pt apparently did not have bowel movement for 1.5 months, since she was discharged from Psychiatry, where she was treated for severe Bipolar disease and Depression. Her son has been taking care of her, gave her OTC laxative 3 days ago, and had some stool this morning in the shower. He denies vomiting, fever, patient denies abdominal pain. She is responding verbally, but very limited. Son gloria bloody stools, urinary complaints, other issues, she has been eating and drinking apparently. - Review of Systems Constitutional: Fatigue, Lethargy, Weakness, No Fever, No Chills Eyes: No Symptoms Ears, Nose, & Throat: No Symptoms Respiratory: No Cough, No Short Of Breath Cardiac: No Chest Pain, No Edema, No Syncope Abdominal/Gastrointestinal: No Abdominal Pain, No Nausea, No Vomiting, No Diarrhea Genitourinary Symptoms: No Dysuria Musculoskeletal: No Back Pain, No Neck Pain Skin: No Rash Neurological: No Dizziness, No Focal Weakness, No Sensory Changes Psychological: No Symptoms Endocrine: No Symptoms Hematologic/Lymphatic: No Symptoms Immunological/Allergic: No Symptoms Medications & Allergies Home Medications: Home Medication List Simvastatin 20Mg [Zocor 20Mg] 20 mg PO DAILY 02/28/12 [History Confirmed 08/22] Levothyroxine Sodium 50 Mcg [Synthroid 50 Mcg] 88 mcg PO DAILY 01/08/16 [ History Confirmed 11/02/18] Divalproex Sodium 250 mg [Divalproex DR 250 mg Tab] 3 tab PO HS 11/02/18 [ History Confirmed 11/02/18] Ferrous Sulfate 325 mg [Feosol 325 mg] 325 mg PO DAILY 11/02/18 [History Confirmed 11/02/18] Lurasidone HCl [Latuda] 120 mg DAILY 11/02/18 [History Confirmed 11/02/18] Sertraline HCl 100 mg DAILY 11/02/18 [History Confirmed 11/02/18] Allergies/Adverse Reactions: Allergies Allergy/AdvReac Type Severity Reaction Status Date / Time No Known Drug Allergies Allergy Verified 11/02/18 13:29 - Past Medical History Past Medical History: Yes Neurological History: No Pertinent History ENT History: No Pertinent History Cardiac History: High Cholesterol Respiratory History: Asthma Endocrine Medical History: Hypothyroidism Musculoskelatal History: Arthritis, Fractures, Other GI Medical History: Gallbladder Disease, GI Bleed, Hemorrhoids, Other History: No Pertinent History Pyscho-Social History: Bipolar, Depression Reproductive Disorders: No Pertinent History Comment: BACK AND LEG PAIN - Female History Hx Last Menstrual Period: post Are you now?: No - Past Surgical History Past Surgical History: Yes Neuro Surgical History: No Pertinent History Cardiac History: No Pertinent History Respiratory Surgery: No Pertinent History GI Surgical History: Hernia Repair Genitourinary Surgical Hx: No Pertinent History Musculskeletal Surgical Hx: Orthopedic Surgery Female Surgical History: No Pertinent History Other Surgical History: right ankle, - Social History Smoking Status: Unknown if ever smoked Exposure to second hand smoke: Yes Alcohol: None Drug Use: none Significant Family History: no pertinent family hx - Physical Exam Vital Signs: Vital Signs - 24 hr Temp Pulse Resp BP Pulse Ox 11/03/18 07:17 98 F 68 18 110/72 97 11/03/18 04:00 98.5 F 64 16 106/70 98 11/03/18 00:00 98.5 F 64 14 110/71 94 L 11/02/18 20:00 97.6 F 58 L 14 123/76 97 11/02/18 17:38 97.9 F 72 18 124/79 91 L 11/02/18 16:39 76 16 110/76 98 11/02/18 16:00 96 11/02/18 15:41 60 93/57 100 11/02/18 14:04 74 16 114/75 98 11/02/18 13:18 97.2 F 75 16 135/86 96 General Appearance: no apparent distress, alert Neurologic Exam: alert, oriented x 3, cooperative, normal mood/affect, nml cerebellar function, nml station & gait, sensation nml, No motor deficits Eye Exam: PERRL/EOMI, eyes nml inspection Ears, Nose, Throat Exam: normal ENT inspection, TMs normal, pharynx normal, moist mucous membranes Neck Exam: normal inspection, non-tender, supple, full range of motion Respiratory Exam: normal breath sounds, lungs clear, No respiratory distress Cardiovascular Exam: regular rate/rhythm, normal heart sounds, normal peripheral pulses Gastrointestinal/Abdomen Exam: soft, normal bowel sounds, No tenderness, No mass Back Exam: normal inspection, normal range of motion, No CVA tenderness, No vertebral tenderness Extremity Exam: normal inspection, normal range of motion, pelvis stable Skin Exam: normal color, warm, dry, No rash Lymphatic Exam: No adenopathy Results - Labs Lab/Micro Results: Lab Results-Last 24 Hours 11/02/18 11/02/18 11/02/18 Range/Units 13:43 14:00 14:00 WBC 7.2 (4.0-10.5) K/mm3 RBC 4.12 (4.1-5.4) M/mm3 Hgb 13.6 (12.0-16.0) gm/dl Hct 41.0 (35-47) % MCV 99.5 (78-100) fl MCH 33.0 H (26-32) pg MCHC 33.2 (32-36) g/dl RDW 12.6 (11.5-14.0) % Plt Count 197 (150-450) K/mm3 MPV 9.8 H (6-9.5) fl Gran % 58.7 (36.0-66.0) % Eos # (Auto) 0.03 (0-0.5) Absolute Lymphs (auto) 2.25 (1.0-4.6) Absolute Monos (auto) 0.69 (0.0-1.3) Lymphocytes % 31.2 (24.0-44.0) % Monocytes % 9.6 (0.0-12.0) % Eosinophils % 0.4 (0.00-5.0) % Basophils % 0.1 (0.0-0.4) % Absolute Granulocytes 4.24 (1.4-6.9) Basophils # 0.01 (0-0.4) PT (9.95-12.35) SECONDS INR (0.8-3.0) Sodium 140 (137-145) mmol/L Potassium 2.4 L* (3.5-5.1) mmol/L Chloride 104 (98-107) mmol/L Carbon Dioxide 28 (22-30) mmol/L Anion Gap 10.8 (5-15) MEQ/L BUN 7 (7-17) mg/dL Creatinine 0.73 (0.52-1.04) mg/dL Estimated GFR > 60.0 ML/MIN Glucose 103 (74-106) mg/dL Lactic Acid 2.3 H (0.4-2.0) Calcium 8.9 (8.4-10.2) mg/dL Magnesium (1.6-2.3) mg/dL Total Bilirubin 0.50 (0.2-1.3) mg/dL AST 11 L (14-36) U/L ALT 11 (0-35) U/L Alkaline Phosphatase 59 (38-126) U/L Serum Total Protein 6.3 (6.3-8.2) g/dL Albumin 3.2 L (3.5-5.0) g/dL Lipase 30 (23-300) U/L Urine Color (YELLOW) Urine Appearance (CLEAR) Urine pH (5-6) Ur Specific Fifield (1.005-1.025) Urine Protein (Negative) Urine Ketones (NEGATIVE) Urine Blood (0-5) Jose/ul Urine Nitrite (NEGATIVE) Urine Bilirubin (NEGATIVE) Urine Urobilinogen (0-1) mg/dL Ur Leukocyte Esterase (NEGATIVE) Urine WBC (Auto) (0-5) /HPF Urine RBC (Auto) (0-2) /HPF U Hyaline Cast (Auto) (0-2) /LPF U Epithel Cells (Auto) (FEW) /HPF Urine Bacteria (Auto) (NEGATIVE) /HPF Urine Mucus (Auto) (NEGATIVE) /HPF Urine Culture Reflexed (NO) Urine Glucose (NEGATIVE) mg/dL Stool Occult Blood (Negative) Urine Opiates Level (NEGATIVE) Ur Methadone (NEGATIVE) Urine Barbiturates (NEGATIVE) Ur Phencyclidine (PCP) (NEGATIVE) Urine Amphetamine (NEGATIVE) U Benzodiazepine Level (NEGATIVE) Urine Cocaine (NEGATIVE) Urine Marijuana (THC) (NEGATIVE) 11/02/18 11/02/18 11/02/18 Range/Units 14:00 14:00 14:20 WBC (4.0-10.5) K/mm3 RBC (4.1-5.4) M/mm3 Hgb (12.0-16.0) gm/dl Hct (35-47) % MCV (78-100) fl MCH (26-32) pg MCHC (32-36) g/dl RDW (11.5-14.0) % Plt Count (150-450) K/mm3 MPV (6-9.5) fl Gran % (36.0-66.0) % Eos # (Auto) (0-0.5) Absolute Lymphs (auto) (1.0-4.6) Absolute Monos (auto) (0.0-1.3) Lymphocytes % (24.0-44.0) % Monocytes % (0.0-12.0) % Eosinophils % (0.00-5.0) % Basophils % (0.0-0.4) % Absolute Granulocytes (1.4-6.9) Basophils # (0-0.4) PT 13.5 H (9.95-12.35) SECONDS INR 1.16 (0.8-3.0) Sodium (137-145) mmol/L Potassium (3.5-5.1) mmol/L Chloride (98-107) mmol/L Carbon Dioxide (22-30) mmol/L Anion Gap (5-15) MEQ/L BUN (7-17) mg/dL Creatinine (0.52-1.04) mg/dL Estimated GFR ML/MIN Glucose (74-106) mg/dL Lactic Acid (0.4-2.0) Calcium (8.4-10.2) mg/dL Magnesium 1.9 (1.6-2.3) mg/dL Total Bilirubin (0.2-1.3) mg/dL AST (14-36) U/L ALT (0-35) U/L Alkaline Phosphatase (38-126) U/L Serum Total Protein (6.3-8.2) g/dL Albumin (3.5-5.0) g/dL Lipase (23-300) U/L Urine Color (YELLOW) Urine Appearance (CLEAR) Urine pH (5-6) Ur Specific Fifield (1.005-1.025) Urine Protein (Negative) Urine Ketones (NEGATIVE) Urine Blood (0-5) Jose/ul Urine Nitrite (NEGATIVE) Urine Bilirubin (NEGATIVE) Urine Urobilinogen (0-1) mg/dL Ur Leukocyte Esterase (NEGATIVE) Urine WBC (Auto) (0-5) /HPF Urine RBC (Auto) (0-2) /HPF U Hyaline Cast (Auto) (0-2) /LPF U Epithel Cells (Auto) (FEW) /HPF Urine Bacteria (Auto) (NEGATIVE) /HPF Urine Mucus (Auto) (NEGATIVE) /HPF Urine Culture Reflexed (NO) Urine Glucose (NEGATIVE) mg/dL Stool Occult Blood NEGATIVE (Negative) Urine Opiates Level (NEGATIVE) Ur Methadone (NEGATIVE) Urine Barbiturates (NEGATIVE) Ur Phencyclidine (PCP) (NEGATIVE) Urine Amphetamine (NEGATIVE) U Benzodiazepine Level (NEGATIVE) Urine Cocaine (NEGATIVE) Urine Marijuana (THC) (NEGATIVE) 11/02/18 11/02/18 11/02/18 Range/Units 14:20 14:20 18:27 WBC (4.0-10.5) K/mm3 RBC (4.1-5.4) M/mm3 Hgb (12.0-16.0) gm/dl Hct (35-47) % MCV (78-100) fl MCH (26-32) pg MCHC (32-36) g/dl RDW (11.5-14.0) % Plt Count (150-450) K/mm3 MPV (6-9.5) fl Gran % (36.0-66.0) % Eos # (Auto) (0-0.5) Absolute Lymphs (auto) (1.0-4.6) Absolute Monos (auto) (0.0-1.3) Lymphocytes % (24.0-44.0) % Monocytes % (0.0-12.0) % Eosinophils % (0.00-5.0) % Basophils % (0.0-0.4) % Absolute Granulocytes (1.4-6.9) Basophils # (0-0.4) PT (9.95-12.35) SECONDS INR (0.8-3.0) Sodium (137-145) mmol/L Potassium (3.5-5.1) mmol/L Chloride (98-107) mmol/L Carbon Dioxide (22-30) mmol/L Anion Gap (5-15) MEQ/L BUN (7-17) mg/dL Creatinine (0.52-1.04) mg/dL Estimated GFR ML/MIN Glucose (74-106) mg/dL Lactic Acid 1.0 (0.4-2.0) Calcium (8.4-10.2) mg/dL Magnesium (1.6-2.3) mg/dL Total Bilirubin (0.2-1.3) mg/dL AST (14-36) U/L ALT (0-35) U/L Alkaline Phosphatase (38-126) U/L Serum Total Protein (6.3-8.2) g/dL Albumin (3.5-5.0) g/dL Lipase (23-300) U/L Urine Color JU (YELLOW) Urine Appearance SLIGHTLY CLOUDY (CLEAR) Urine pH 6.0 (5-6) Ur Specific Fifield 1.013 (1.005-1.025) Urine Protein NEGATIVE (Negative) Urine Ketones NEGATIVE (NEGATIVE) Urine Blood NEGATIVE (0-5) Jose/ul Urine Nitrite POSITIVE (NEGATIVE) Urine Bilirubin NEGATIVE (NEGATIVE) Urine Urobilinogen 4 (0-1) mg/dL Ur Leukocyte Esterase SMALL (NEGATIVE) Urine WBC (Auto) 26-50 (0-5) /HPF Urine RBC (Auto) 3-5 (0-2) /HPF U Hyaline Cast (Auto) >50 (0-2) /LPF U Epithel Cells (Auto) NONE (FEW) /HPF Urine Bacteria (Auto) FEW (NEGATIVE) /HPF Urine Mucus (Auto) SLIGHT (NEGATIVE) /HPF Urine Culture Reflexed YES (NO) Urine Glucose NEGATIVE (NEGATIVE) mg/dL Stool Occult Blood (Negative) Urine Opiates Level NEGATIVE (NEGATIVE) Ur Methadone NEGATIVE (NEGATIVE) Urine Barbiturates NEGATIVE (NEGATIVE) Ur Phencyclidine (PCP) NEGATIVE (NEGATIVE) Urine Amphetamine NEGATIVE (NEGATIVE) U Benzodiazepine Level NEGATIVE (NEGATIVE) Urine Cocaine NEGATIVE (NEGATIVE) Urine Marijuana (THC) NEGATIVE (NEGATIVE) 11/03/18 11/03/18 Range/Units 05:40 05:40 WBC 12.9 H (4.0-10.5) K/mm3 RBC 3.94 L (4.1-5.4) M/mm3 Hgb 13.0 (12.0-16.0) gm/dl Hct 40.3 (35-47) % MCV 102.3 H (78-100) fl MCH 32.9 H (26-32) pg MCHC 32.3 (32-36) g/dl RDW 12.6 (11.5-14.0) % Plt Count 189 (150-450) K/mm3 MPV 9.9 H (6-9.5) fl Gran % 76.3 H (36.0-66.0) % Eos # (Auto) 0.06 (0-0.5) Absolute Lymphs (auto) 1.80 (1.0-4.6) Absolute Monos (auto) 1.17 (0.0-1.3) Lymphocytes % 13.9 L (24.0-44.0) % Monocytes % 9.1 (0.0-12.0) % Eosinophils % 0.5 (0.00-5.0) % Basophils % 0.2 (0.0-0.4) % Absolute Granulocytes 9.86 H (1.4-6.9) Basophils # 0.02 (0-0.4) PT (9.95-12.35) SECONDS INR (0.8-3.0) Sodium 139 (137-145) mmol/L Potassium 2.8 L* (3.5-5.1) mmol/L Chloride 105 (98-107) mmol/L Carbon Dioxide 29 (22-30) mmol/L Anion Gap 8.8 (5-15) MEQ/L BUN 6 L (7-17) mg/dL Creatinine 0.76 (0.52-1.04) mg/dL Estimated GFR > 60.0 ML/MIN Glucose 111 H (74-106) mg/dL Lactic Acid (0.4-2.0) Calcium 8.9 (8.4-10.2) mg/dL Magnesium (1.6-2.3) mg/dL Total Bilirubin (0.2-1.3) mg/dL AST (14-36) U/L ALT (0-35) U/L Alkaline Phosphatase (38-126) U/L Serum Total Protein (6.3-8.2) g/dL Albumin (3.5-5.0) g/dL Lipase (23-300) U/L Urine Color (YELLOW) Urine Appearance (CLEAR) Urine pH (5-6) Ur Specific Fifield (1.005-1.025) Urine Protein (Negative) Urine Ketones (NEGATIVE) Urine Blood (0-5) Jose/ul Urine Nitrite (NEGATIVE) Urine Bilirubin (NEGATIVE) Urine Urobilinogen (0-1) mg/dL Ur Leukocyte Esterase (NEGATIVE) Urine WBC (Auto) (0-5) /HPF Urine RBC (Auto) (0-2) /HPF U Hyaline Cast (Auto) (0-2) /LPF U Epithel Cells (Auto) (FEW) /HPF Urine Bacteria (Auto) (NEGATIVE) /HPF Urine Mucus (Auto) (NEGATIVE) /HPF Urine Culture Reflexed (NO) Urine Glucose (NEGATIVE) mg/dL Stool Occult Blood (Negative) Urine Opiates Level (NEGATIVE) Ur Methadone (NEGATIVE) Urine Barbiturates (NEGATIVE) Ur Phencyclidine (PCP) (NEGATIVE) Urine Amphetamine (NEGATIVE) U Benzodiazepine Level (NEGATIVE) Urine Cocaine (NEGATIVE) Urine Marijuana (THC) (NEGATIVE) Microbiology 11/02/18 14:20 Urine Culture - Preliminary Catherized GRAM NEGATIVE ID AND SENSITIVITY PENDING - Radiology Impressions Radiology Exams & Impressions: Radiology Procedures Category Date Time Status ABDOMEN AND PELVIS W/0 CONTRAS [CT] Stat Exams 11/02/18 14:19 Completed Assessment/Plan (1) Hypokalemia Current Visit: Yes Status: Acute Assessment & Plan: Last Vital Signs Temp 98 F 11/03/18 07:17 Pulse 68 11/03/18 07:17 Resp 18 11/03/18 07:17 BP 110/72 11/03/18 07:17 Pulse Ox 97 11/03/18 07:17 Allergies No Known Drug Allergies Allergy (Verified 11/02/18 13:29) Active Medications Divalproex Sodium (Divalproex Dr 250 Mg Tab) 750 mg PO HS [facility]O Stop: 12/02/18 21:59 Last Admin: 11/02/18 21:02 Dose: 750 mg Potassium Chloride/Sodium Chloride (Sodium Chloride 0.9% W/ 20 Meq Kcl/Liter) 1 ,000 mls @ 100 mls/hr IV .Q10H AMADO Stop: 12/02/18 18:59 Ceftriaxone Sodium/Dextrose (Rocephin 1 Gm-D5w 50 Ml Bag) 1 g in 50 mls @ 100 mls/hr IV Q24H22 [facility] Stop: 12/03/18 21:59 Levothyroxine Sodium (Synthroid 88 Mcg) 88 mcg PO DAILY [facility] Stop: 12/03/18 09:59 Last Admin: 11/03/18 10:35 Dose: 88 mcg Miscellaneous Information (Medication Intervention) 1 each MC .RN TO CHECK WITH PT [facility]ADO Stop: 12/03/18 06:59 Ondansetron HCl (Zofran 4 Mg/2 Ml Vial) 4 mg IV Q6H PRN PRN PRN Reason: NAUSEA/VOMITING Stop: 12/02/18 18:58 Potassium Chloride (Klor Con 10 Meq) 40 meq PO DAILY [facility] Stop: 12/03/18 09:59 Last Admin: 11/03/18 10:33 Dose: 40 meq Sertraline HCl (Zoloft 50 Mg Tablet) 100 mg PO HS [facility] Stop: 12/03/18 21:59 Simvastatin (Zocor 20mg) 20 mg PO HS [facility] Stop: 12/02/18 21:59 Last Admin: 11/02/18 21:02 Dose: 20 mg Intake & Output 11/02/18 11/03/18 11:59 11:59 Intake Total 1669 Balance 1669 Weight 47.627 kg Orders 11/02/18 22:00 Divalproex Sodium 250 mg [Divalproex DR 250 mg Tab] 750 mg PO HS Simvastatin 20Mg [Zocor 20Mg] 20 mg PO HS 11/03/18 07:00 Medication Intervention 1 each MC .RN TO CHECK WITH PT 11/03/18 10:00 Levothyroxine Sodium 88 Mcg [Synthroid 88 Mcg] 88 mcg PO DAILY 11/03/18 22:00 Ceftriaxone 1 GM/50 ML PREMIX* [ROCEPHIN 1 Gm-D5w 50 ml Bag] 1 g in 50 ml IV Q24H22 Sertraline HCl 50 mg [Zoloft 50 mg Tablet] 100 mg PO HS Lab Tests 11/02/18 11/02/18 11/02/18 13:43 14:00 14:00 WBC 7.2 RBC 4.12 Hgb 13.6 Hct 41.0 MCV 99.5 MCH 33.0 H MCHC 33.2 RDW 12.6 Plt Count 197 MPV 9.8 H Gran % 58.7 Eos # (Auto) 0.03 Absolute Lymphs (auto) 2.25 Absolute Monos (auto) 0.69 Lymphocytes % 31.2 Monocytes % 9.6 Eosinophils % 0.4 Basophils % 0.1 Absolute Granulocytes 4.24 Basophils # 0.01 PT INR Sodium 140 Potassium 2.4 L* Chloride 104 Carbon Dioxide 28 Anion Gap 10.8 BUN 7 Creatinine 0.73 Estimated GFR > 60.0 Glucose 103 Lactic Acid 2.3 H Calcium 8.9 Magnesium Total Bilirubin 0.50 AST 11 L ALT 11 Alkaline Phosphatase 59 Serum Total Protein 6.3 Albumin 3.2 L Lipase 30 Urine Color Urine Appearance Urine pH Ur Specific Fifield Urine Protein Urine Ketones Urine Blood Urine Nitrite Urine Bilirubin Urine Urobilinogen Ur Leukocyte Esterase Urine WBC (Auto) Urine RBC (Auto) U Hyaline Cast (Auto) U Epithel Cells (Auto) Urine Bacteria (Auto) Urine Mucus (Auto) Urine Culture Reflexed Urine Glucose Stool Occult Blood Urine Opiates Level Ur Methadone Urine Barbiturates Ur Phencyclidine (PCP) Urine Amphetamine U Benzodiazepine Level Urine Cocaine Urine Marijuana (THC) 11/02/18 11/02/18 11/02/18 14:00 14:00 14:20 WBC RBC Hgb Hct MCV MCH MCHC RDW Plt Count MPV Gran % Eos # (Auto) Absolute Lymphs (auto) Absolute Monos (auto) Lymphocytes % Monocytes % Eosinophils % Basophils % Absolute Granulocytes Basophils # PT 13.5 H INR 1.16 Sodium Potassium Chloride Carbon Dioxide Anion Gap BUN Creatinine Estimated GFR Glucose Lactic Acid Calcium Magnesium 1.9 Total Bilirubin AST ALT Alkaline Phosphatase Serum Total Protein Albumin Lipase Urine Color Urine Appearance Urine pH Ur Specific Fifield Urine Protein Urine Ketones Urine Blood Urine Nitrite Urine Bilirubin Urine Urobilinogen Ur Leukocyte Esterase Urine WBC (Auto) Urine RBC (Auto) U Hyaline Cast (Auto) U Epithel Cells (Auto) Urine Bacteria (Auto) Urine Mucus (Auto) Urine Culture Reflexed Urine Glucose Stool Occult Blood NEGATIVE Urine Opiates Level Ur Methadone Urine Barbiturates Ur Phencyclidine (PCP) Urine Amphetamine U Benzodiazepine Level Urine Cocaine Urine Marijuana (THC) 11/02/18 11/02/18 11/02/18 14:20 14:20 18:27 WBC RBC Hgb Hct MCV MCH MCHC RDW Plt Count MPV Gran % Eos # (Auto) Absolute Lymphs (auto) Absolute Monos (auto) Lymphocytes % Monocytes % Eosinophils % Basophils % Absolute Granulocytes Basophils # PT INR Sodium Potassium Chloride Carbon Dioxide Anion Gap BUN Creatinine Estimated GFR Glucose Lactic Acid 1.0 Calcium Magnesium Total Bilirubin AST ALT Alkaline Phosphatase Serum Total Protein Albumin Lipase Urine Color JU Urine Appearance SLIGHTLY CLOUDY Urine pH 6.0 Ur Specific Fif[place] 1.013 Urine Protein NEGATIVE Urine Ketones NEGATIVE Urine Blood NEGATIVE Urine Nitrite POSITIVE Urine Bilirubin NEGATIVE Urine Urobilinogen 4 Ur Leukocyte Esterase SMALL Urine WBC (Auto) 26-50 Urine RBC (Auto) 3-5 U Hyaline Cast (Auto) >50 U Epithel Cells (Auto) NONE Urine Bacteria (Auto) FEW Urine Mucus (Auto) SLIGHT Urine Culture Reflexed YES Urine Glucose NEGATIVE Stool Occult Blood Urine Opiates Level NEGATIVE Ur Methadone NEGATIVE Urine Barbiturates NEGATIVE Ur Phencyclidine (PCP) NEGATIVE Urine Amphetamine NEGATIVE U Benzodiazepine Level NEGATIVE Urine Cocaine NEGATIVE Urine Marijuana (THC) NEGATIVE 11/03/18 11/03/18 05:40 05:40 WBC 12.9 H RBC 3.94 L Hgb 13.0 Hct 40.3 MCV 102.3 H MCH 32.9 H MCHC 32.3 RDW 12.6 Plt Count 189 MPV 9.9 H Gran % 76.3 H Eos # (Auto) 0.06 Absolute Lymphs (auto) 1.80 Absolute Monos (auto) 1.17 Lymphocytes % 13.9 L Monocytes % 9.1 Eosinophils % 0.5 Basophils % 0.2 Absolute Granulocytes 9.86 H Basophils # 0.02 PT INR Sodium 139 Potassium 2.8 L* Chloride 105 Carbon Dioxide 29 Anion Gap 8.8 BUN 6 L Creatinine 0.76 Estimated GFR > 60.0 Glucose 111 H Lactic Acid Calcium 8.9 Magnesium Total Bilirubin AST ALT Alkaline Phosphatase Serum Total Protein Albumin Lipase Urine Color Urine Appearance Urine pH Ur Specific Fifield Urine Protein Urine Ketones Urine Blood Urine Nitrite Urine Bilirubin Urine Urobilinogen Ur Leukocyte Esterase Urine WBC (Auto) Urine RBC (Auto) U Hyaline Cast (Auto) U Epithel Cells (Auto) Urine Bacteria (Auto) Urine Mucus (Auto) Urine Culture Reflexed Urine Glucose Stool Occult Blood Urine Opiates Level Ur Methadone Urine Barbiturates Ur Phencyclidine (PCP) Urine Amphetamine U Benzodiazepine Level Urine Cocaine Urine Marijuana (THC) Microbiology 11/02/18 14:20 Catherized Urine Culture - Preliminary GRAM NEGATIVE ID AND SENSITIVITY PENDING Code(s): E87.6 - HYPOKALEMIA (2) Incontinence in female Current Visit: Yes Status: Acute Code(s): R32 - UNSPECIFIED URINARY INCONTINENCE (3) Fecal impaction in rectum Current Visit: Yes Status: Acute Code(s): K56.41 - FECAL IMPACTION (4) Bipolar disorder (manic depression) Current Visit: Yes Status: Chronic
[2018-11-03] MEDS: Sodium Chloride 0.9% W/ 20 mEq KCl/LITER 1,000 ML IV SCH ×2 (12:11→21:55)
[2018-11-03] MEDS: ZOCOR 20MG PO SCH (21:59)
[2018-11-03] MEDS ORDERED: ZOLOFT 50 MG TABLET PO SCH (22:00)
[2018-11-03] MEDS ORDERED: ROCEPHIN 1 Gm-D5w 50 ml Bag** 1 G/50 ML IVPB IV SCH (22:00)
[2018-11-04] MEDS: Klor Con 10 MEQ PO SCH (08:27)
[2018-11-04] MEDS: Sodium Chloride 0.9% W/ 20 mEq KCl/LITER 1,000 ML IV SCH (08:27)
[2018-11-04] MEDS: SYNTHROID 88 MCG PO SCH (08:27)
[2018-11-04 12:20] VITALS: BP 133/87; PULSE 79; O2SAT 95
--- NOTE | 2018-11-04 12:52 | PCM.DS ---
Discharge Summary Date of Admission: 11/02/18 16:34 Admitting Physician: ERNST MANUEL Primary Care Provider: ERNST MANUEL Allergies Allergies No Known Drug Allergies Allergy (Verified 11/02/18 13:29) Hospital Summary - Hospital Course Hospital Course: Last Vital Signs Temp 98 F 11/04/18 12:19 Pulse 79 11/04/18 12:19 Resp 22 11/04/18 12:19 BP 133/87 11/04/18 12:19 Pulse Ox 95 11/04/18 12:19 Allergies No Known Drug Allergies Allergy (Verified 11/02/18 13:29) Active Medications Divalproex Sodium (Divalproex Dr 250 Mg Tab) 750 mg PO HS [facility] Stop: 12/02/18 21:59 Last Admin: 11/03/18 21:59 Dose: 750 mg Potassium Chloride/Sodium Chloride (Sodium Chloride 0.9% W/ 20 Meq Kcl/Liter) 1 ,000 mls @ 100 mls/hr IV .Q10H [facility] Stop: 12/02/18 18:59 Last Admin: 11/04/18 08:27 Dose: 100 mls/hr Ceftriaxone Sodium/Dextrose (Rocephin 1 Gm-D5w 50 Ml Bag) 1 g in 50 mls @ 100 mls/hr IV Q24H22 [facility] Stop: 12/03/18 21:59 Last Admin: 11/03/18 21:56 Dose: 100 mls/hr Levothyroxine Sodium (Synthroid 88 Mcg) 88 mcg PO DAILY [facility] Stop: 12/03/18 09:59 Last Admin: 11/04/18 08:27 Dose: 88 mcg Miscellaneous Information (Medication Intervention) 1 each MC .RN TO CHECK WITH PT [facility] Stop: 12/03/18 06:59 Ondansetron HCl (Zofran 4 Mg/2 Ml Vial) 4 mg IV Q6H PRN PRN PRN Reason: NAUSEA/VOMITING Stop: 12/02/18 18:58 Potassium Chloride (Klor Con 10 Meq) 40 meq PO DAILY [facility] Stop: 12/03/18 09:59 Last Admin: 11/04/18 08:27 Dose: 40 meq Sertraline HCl (Zoloft 50 Mg Tablet) 100 mg PO HS [facility] Stop: 12/03/18 21:59 Last Admin: 11/03/18 21:59 Dose: 100 mg Simvastatin (Zocor 20mg) 20 mg PO HS [facility] Stop: 12/02/18 21:59 Last Admin: 11/03/18 21:59 Dose: 20 mg Intake & Output 11/04/18 11/05/18 11:59 11:59 Intake Total 4296 Output Total 300 Balance 3996 Orders 11/03/18 22:00 Ceftriaxone 1 GM/50 ML PREMIX* [ROCEPHIN 1 Gm-D5w 50 ml Bag] 1 g in 50 ml IV Q24H22 Sertraline HCl 50 mg [Zoloft 50 mg Tablet] 100 mg PO HS 11/04/18 Discharge Routine Lab Tests 11/03/18 14:53 Potassium 3.6 D Microbiology 11/02/18 14:20 Catherized Urine Culture - Final Escherichia Coli - Vitals & Intake/Output Vital Signs: Vital Signs Temperature 98 F 11/04/18 12:19 Pulse Rate 79 11/04/18 12:19 Respiratory Rate 22 11/04/18 12:19 Blood Pressure 133/87 11/04/18 12:19 O2 Sat by Pulse Oximetry 95 11/04/18 12:19 Intake & Output: Intake & Output 11/02/18 11/03/18 11/04/18 11/05/18 11:59 11:59 11:59 11:59 Intake Total 1669 4296 Output Total 300 Balance 1669 3996 Weight 47.627 kg - Lab Result Diagrams: 11/03/18 05:40 11/03/18 14:53 Lab Results-Last 24 Hrs: Lab Results-Last 24 Hours 11/03/18 Range/Units 14:53 Potassium 3.6 D (3.5-5.1) mmol/L Micro Results-Entire Visit: Microbiology 11/02/18 14:20 Urine Culture - Final Catherized Escherichia Coli - Radiology Exams Ordered Rad Exams-Entire Visit: Radiology Procedures Category Date Time Status ABDOMEN AND PELVIS W/0 CONTRAS [CT] Stat Exams 11/02/18 14:19 Completed Discharge Exam General Appearance: no apparent distress, alert Neurologic Exam: alert, oriented x 3, cooperative, normal mood/affect, nml cerebellar function, sensation nml, No motor deficits Skin Exam: normal color, warm, dry Eye Exam: PERRL, EOMI, eyes nml inspection Ears, Nose, Throat Exam: normal ENT inspection, pharynx normal, moist mucous membranes Neck Exam: normal inspection, non-tender, supple, full range of motion Respiratory Exam: normal breath sounds, lungs clear, No respiratory distress Cardiovascular Exam: regular rate/rhythm, normal heart sounds Gastrointestinal/Abdomen Exam: soft, No tenderness, No mass Extremity Exam: normal inspection, normal range of motion Back Exam: normal inspection, normal range of motion, No CVA tenderness, No vertebral tenderness Pelvic Exam: deferred Rectal Exam: deferred Final Diagnosis/Problem List - Final Discharge Diagnosis/Problem (1) Hypokalemia Current Visit: Yes Status: Resolved Code(s): E87.6 - HYPOKALEMIA (2) Incontinence in female Current Visit: Yes Status: Chronic Code(s): R32 - UNSPECIFIED URINARY INCONTINENCE (3) Fecal impaction in rectum Current Visit: Yes Status: Chronic Code(s): K56.41 - FECAL IMPACTION (4) Bipolar disorder (manic depression) Current Visit: Yes Status: Chronic - Discharge Discharge Date: 11/04/18 Disposition: Home, Self-Care Condition: Stable Prescriptions: New Ciprofloxacin [Cipro 500 MG] 500 mg PO BID 7 Days #14 tablet Potassium Chloride 10 Meq Tab* [Klor Con 10 MEQ] 10 meq PO DAILY 30 Days # 30 tab Continue Simvastatin 20Mg [Zocor 20Mg] 20 mg PO DAILY Levothyroxine Sodium 50 Mcg [Synthroid 50 Mcg] 88 mcg PO DAILY Sertraline HCl 100 mg DAILY Lurasidone HCl [Latuda] 120 mg DAILY Divalproex Sodium 250 mg [Divalproex DR 250 mg Tab] 3 tab PO HS Ferrous Sulfate 325 mg [Feosol 325 mg] 325 mg PO DAILY Instructions: Hypokalemia (DC), Urinary Tract Infection, Adult (DC), Fecal Impaction (DC) Follow up with: ERNST MANUEL MD [Primary Care Provider] - 11/06/18 2:15 pm Forms: Discharge Instructions
== END 2018-11-04 15:39 | disposition home or self-care (01) ==
LOC: ED 13:14 → UNDOADMOB 16:34 → MED SURG 16:34 → ICU 16:34 → MED SURG 11-03 01:52 → INTOOBSV 11-03 11:40 → OBSVTOIN 11-03 11:40
PROVIDERS: ADMIT General Practice; ATTEND General Practice
DX: E87.6 Hypokalemia (principal); R32 Unspecified urinary incontinence; K56.41 Fecal impaction; F31.9 Bipolar disorder, unspecified; Z79.899 Other long term (current) drug therapy
CPT/HCPCS: 36000; 36415; 74176; 80048; 80053; 80307; 81001; 82272; 83605; 83690; 83735; 84132; 85025; 85610; 87077; 87086; 87186; 93005; 93268; 96360; 96374; 99285; J0696; J3480; A9270-GY; G0378

== ENCOUNTER 2018-12-18 14:58 | Emergency (ER) | payer OTHER ==
--- NOTE | 2018-12-18 15:48 | ERPHSYRPT ---
- History of Present Illness Time Seen by Provider: 12/18/18 15:43 Historian: patient, family Patient Subjective Stated Complaint: son reports pt has been constipated for 6 weeks. had a BM yesterday but was black in color. Triage Nursing Assessment: no c/o. asked about bowel/elimination difficulties and patient denies any problems. ABD snt with + bs. continent of b/b. appetite adequate Physician History: pt hx constipation and dark stools, is not dizzy, pt refused rectal exam or enema, no abdominal pain or vomiting Allergies/Adverse Reactions: No Known Drug Allergies Allergy (Verified 11/02/18 13:29) Home Medications: Simvastatin 20Mg [Zocor 20Mg] 20 mg PO DAILY 02/28/12 [History] Levothyroxine Sodium 50 Mcg [Synthroid 50 Mcg] 88 mcg PO DAILY 01/08/16 [ History] Divalproex Sodium 250 mg [Divalproex DR 250 mg Tab] 3 tab PO HS 11/02/18 [ History] Ferrous Sulfate 325 mg [Feosol 325 mg] 325 mg PO DAILY 11/02/18 [History] Lurasidone HCl [Latuda] 80 mg DAILY 11/02/18 [History] Venlafaxine HCl ER 75 mg [Effexor XR 75 MG] 75 mg PO 12/18/18 [History] Hx Tetanus, Diphtheria Vaccination/Date Given: Yes Hx Influenza Vaccination/Date Given: No Hx Pneumococcal Vaccination/Date Given: No Immunizations Up to Date: Yes - Review of Systems Constitutional: No Fever Eyes: No Eye Redness Ears, Nose, & Throat: No Epistaxis Respiratory: No Cyanosis, No Dyspnea Cardiac: No Chest Pain Abdominal/Gastrointestinal: Constipation, No Abdominal Pain, No Vomiting Genitourinary Symptoms: No Dysuria Musculoskeletal: No Back Pain Skin: No Rash Neurological: No Dizziness - Past Medical History Pertinent Past Medical History: Yes Neurological History: No Pertinent History ENT History: No Pertinent History Cardiac History: High Cholesterol Respiratory History: Asthma Endocrine Medical History: Hypothyroidism Musculoskeletal History: Arthritis, Fractures, Other GI Medical History: Gallbladder Disease, GI Bleed, Hemorrhoids, Other History: No Pertinent History Psycho-Social History: Bipolar, Depression Female Reproductive Disorders: No Pertinent History Other Medical History: BACK AND LEG PAIN - Past Surgical History Past Surgical History: Yes Neuro Surgical History: No Pertinent History Cardiac: No Pertinent History Respiratory: No Pertinent History Gastrointestinal: Hernia Repair Genitourinary: No Pertinent History Musculoskeletal: Orthopedic Surgery Female Surgical History: No Pertinent History Other Surgical History: right ankle - Social History Smoking Status: Unknown if ever smoked Exposure to second hand smoke: Yes Alcohol Use: None Drug Use: none Patient Lives Alone: No Significant Family History: no pertinent family hx - Nursing Vital Signs Nursing Vital Signs: Initial Vital Signs Temperature 98.5 F 12/18/18 14:59 Pulse Rate 85 12/18/18 14:59 Respiratory Rate 18 12/18/18 14:59 Blood Pressure 127/93 12/18/18 14:59 O2 Sat by Pulse Oximetry 96 12/18/18 14:59 Pain Scale Pain Intensity 0 - Physical Exam General Appearance: no apparent distress Eye Exam: eyes nml inspection, No pale conjunctivae Ears, Nose, Throat Exam: moist mucous membranes Neck Exam: normal inspection Respiratory Exam: normal breath sounds Cardiovascular Exam: regular rate/rhythm Gastrointestinal/Abdomen Exam: soft, No tenderness, No distention, No rebound Back Exam: No vertebral tenderness Extremity Exam: pelvis stable Neurologic Exam: alert, oriented x 3 Skin Exam: normal color, warm, dry SpO2 Interpretation: normal SpO2: 96 - Course Nursing assessment & vital signs reviewed: Yes - Progress Progress: unchanged Progress Note: 12/18/18 15:46 miralax, colace, see your doctor, return if worse, oral fluids Counseled pt/family regarding: diagnosis, need for follow-up - Departure Departure Disposition: Home Clinical Impression: Constipation Qualifiers: Constipation type: unspecified constipation type Qualified Code(s): K59.00 - Constipation, unspecified Condition: Stable Critical Care Time: No Referrals: ERNST MANUEL MD [Primary Care Provider] - Instructions: Constipation, Adult (DC) Prescriptions: Docusate Sodium [Colace] 100 mg PO DAILY 10 Days #10 capsule
[2018-12-18 16:22] VITALS: BP 96/73; PULSE 86; O2SAT 98
== END 2018-12-18 16:20 | disposition home or self-care (01) ==
LOC: ED 14:58
DX: K59.00 Constipation, unspecified (principal); Z79.899 Other long term (current) drug therapy; E78.00 Pure hypercholesterolemia, unspecified; J45.909 Unspecified asthma, uncomplicated; E03.9 Hypothyroidism, unspecified; M19.90 Unspecified osteoarthritis, unspecified site; F31.9 Bipolar disorder, unspecified
CPT/HCPCS: 99283

== ENCOUNTER 2020-10-23 16:26 | Emergency (ER) | payer OTHER ==
[2020-10-23 17:19] VITALS: BP 149/93; PULSE 57; O2SAT 97
--- NOTE | 2020-10-23 17:50 | ERPHSYRPT ---
- History of Present Illness Source: patient Exam Limitations: other (Poor historian) Patient Subjective Stated Complaint: Injury to second toe of left foot caused by a fall a week ago. Triage Nursing Assessment: Pt to ED A & OX3, ambulatory with assistance. Tip of second toe to left foot is black, no drainage noted, pt denies pain. Shaking noted, hx Parkinson's. Skin PWD. VSS. Physician History: 65 yo wf w L 2nd toe vs coffee table 2 days ago. Pt has minimal pain and denies other/previous injuries. Method of Injury: direct blow Occurred: days ago (2 days) Quality: dullness Lower Extremities Pain: 2nd toe: left Modifying Factors: Improves With: movement Associated Symptoms: none Allergies/Adverse Reactions: No Known Drug Allergies Allergy (Verified 10/23/20 17:19) Home Medications: Simvastatin 20Mg [Zocor 20Mg] 20 mg PO DAILY 02/28/12 [History] Levothyroxine Sodium 50 Mcg [Synthroid 50 Mcg] 88 mcg PO DAILY 01/08/16 [History] Divalproex Sodium 250 mg [Divalproex DR 250 mg Tab] 3 tab PO HS 11/02/18 [History] Ferrous Sulfate 325 mg [Feosol 325 mg] 325 mg PO DAILY 11/02/18 [History] Lurasidone HCl [Latuda] 80 mg DAILY 11/02/18 [History] Venlafaxine HCl ER 75 mg [Effexor XR 75 MG] 75 mg PO 12/18/18 [History] Hx Tetanus, Diphtheria Vaccination/Date Given: Yes Hx Influenza Vaccination/Date Given: No Hx Pneumococcal Vaccination/Date Given: No Travel Risk - International Travel Have you traveled outside of the country in past 3 weeks: No - Coronavirus Screening Are you exhibiting any of the following symptoms?: No Close contact with a COVID-19 positive Pt in past 14-21 Days: No - Review of Systems Constitutional: No Symptoms Eyes: No Symptoms Ears, Nose, & Throat: No Symptoms Respiratory: No Symptoms Cardiac: No Symptoms Abdominal/Gastrointestinal: No Symptoms Genitourinary Symptoms: No Symptoms Skin: No Symptoms Neurological: No Symptoms Psychological: No Symptoms Endocrine: No Symptoms Hematologic/Lymphatic: No Symptoms Immunological/Allergic: No Symptoms - Past Medical History Pertinent Past Medical History: Yes Neurological History: No Pertinent History ENT History: No Pertinent History Cardiac History: High Cholesterol Respiratory History: Asthma Endocrine Medical History: Hypothyroidism Musculoskeletal History: Arthritis, Fractures, Other GI Medical History: Gallbladder Disease, GI Bleed, Hemorrhoids, Other History: No Pertinent History Psycho-Social History: Bipolar, Depression Female Reproductive Disorders: No Pertinent History Other Medical History: BACK AND LEG PAIN - Past Surgical History Past Surgical History: Yes Neuro Surgical History: No Pertinent History Cardiac: No Pertinent History Respiratory: No Pertinent History Gastrointestinal: Hernia Repair Genitourinary: No Pertinent History Musculoskeletal: Orthopedic Surgery Female Surgical History: No Pertinent History Other Surgical History: right ankle - Social History Smoking Status: Never smoker Exposure to second hand smoke: Yes Alcohol Use: None Drug Use: none Patient Lives Alone: No Significant Family History: no pertinent family hx - Female History Hx Now: No - Nursing Vital Signs Nursing Vital Signs: Initial Vital Signs Temperature 97.5 F 10/23/20 17:10 Pulse Rate 57 L 10/23/20 17:10 Respiratory Rate 16 10/23/20 17:10 Blood Pressure 149/93 10/23/20 17:10 O2 Sat by Pulse Oximetry 97 10/23/20 17:10 Pain Scale Pain Intensity 4 - Physical Exam General Appearance: no apparent distress Eyes, Ears, Nose, Throat Exam: normal ENT inspection, TMs normal, pharynx normal, moist mucous membranes Neck Exam: normal inspection, non-tender, supple, full range of motion Cardiovascular/Respiratory Exam: normal breath sounds, regular rate/rhythm, heart sounds normal Gastrointestinal/Abdominal Exam: non-tender, soft Back Exam: normal inspection, normal range of motion, CVA tenderness Hips Exam: bilateral: non-tender, normal inspection, normal range of motion, no evidence of injury Legs Exam: bilateral leg: non-tender, normal inspection, normal range of motion, no evidence of injury Knees Exam: bilateral knee: non-tender, normal inspection, normal range of motion, no evidence of injury Foot Exam: left foot: nail injury (L 2nd toe w partially avulsed nail/Good capillary return/Mild edema) Neuro/Tendon Exam: normal sensation, normal motor functions, normal tendon functions, responds to pain (Resting tremor due to PD), No motor deficit, No sensory deficit Mental Status Exam: alert, oriented x 3, cooperative Skin Exam: normal color SpO2 Interpretation: normal SpO2: 97 O2 Delivery: Room Air - Course Nursing assessment & vital signs reviewed: Yes - Radiology Exams Foot X-ray Interpretation: Interpreted by me (L 2nd toe distal phalanyx fx) Ordered Tests: Active Orders 24 hr Category Date Time Status FOOT (MINIMUM 3 VIEWS) Stat Exams 10/23/20 17:46 Taken Medication Summary Discontinued Medications Generic Name Dose Route Start Last Admin Trade Name Freq PRN Reason Stop Dose Admin Ketorolac Tromethamine 30 mg 10/23/20 18:09 10/23/20 18:12 Toradol 30 Mg Injection IM 10/23/20 18:10 30 mg STAT ONE Administration Ketorolac Tromethamine Confirm 10/23/20 18:11 Toradol 30 Mg Injection Administered 10/23/20 18:12 Dose 30 mg .ROUTE .STK-MED ONE - Progress Progress Note: 10/23/20 18:00 Avulsed nail easily removed from 2nd toe/nail bed wo sig injury/Mild ttp/mild erythema of toe 10/23/20 18:03 Wound cleansed w Hibiclens per nursing Post-op shoe applied per nursing/NVI Counseled pt/family regarding: need for follow-up, rad results - Departure Departure Disposition: Home Clinical Impression: Open toe fracture Condition: Stable Critical Care Time: No Referrals: ERNST MANUEL MD [Primary Care Provider] - DENISHA MACHUCA DPM [ACTIVE STAFF] - Instructions: Toe Injury (DC) Additional Instructions: Follow up with Dr. Kathrine ROSS Start antibiotic Motrin/tylenol for pain Forms: Ortho Referral Prescriptions: Doxycycline Monohydrate 100 mg PO BID #14 tablet Ketorolac Tromethamine [Toradol] 10 mg PO TID PRN #10 tablet
[2020-10-23] MEDS ORDERED: TORAdol 30 mg Injection IM ONE (18:09)
[2020-10-23] MEDS ORDERED: TORAdol 30 mg Injection ONE (18:11)
--- NOTE | 2020-10-24 08:56 | XRAY ---
Indication: Discolored 2nd toe. Black/necrotic. Comparison: February 13, 2010. 3 nonweightbearing views left foot demonstrates mild osteopenia and stable tiny heel spurs. New soft tissue swelling distal 2nd toe with faint tuft cortical erosion on the lateral view either posttraumatic versus cellulitis/osteomyelitis. Correlate clinically.
== END 2020-10-23 18:21 | disposition home or self-care (01) ==
LOC: ED 16:26
DX: S92.532B Displaced fracture of distal phalanx of left lesser toe(s), initial encounter for open fracture (principal); W22.03XA Walked into furniture, initial encounter; M79.675 Pain in left toe(s); G20 Parkinson's disease; E03.9 Hypothyroidism, unspecified; M19.90 Unspecified osteoarthritis, unspecified site
CPT/HCPCS: 73630; 96372; 99284; J1885

== ENCOUNTER 2023-03-18 10:44 | Emergency (ER) | payer MEDICARE ==
--- NOTE | 2023-03-18 10:57 | ERPHSYRPT ---
- History of Present Illness Time Seen by Provider: 03/18/23 10:52 Source: patient Exam Limitations: no limitations Physician History: Patient is a 67-year-old female presents to our ED via EMS. Code in progress. EMS reports patient was found unresponsive at the group home. The time of unresponsiveness is unknown. However EMS documents that they have observed her down for approximately 20 minutes. Patient was in PEA from the time EMS arrived to the time patient arrived to our ED. no shock administered. Patient received 4 rounds of epinephrine. Chest compressions ongoing from the time EMS arrived to their arrival in our ED. EMS reports patient was intubated on the scene. No gag reflex at that time. Upon arrival to our ED patient's eyes were fixed and dilated. No corneal reflex. EMS reports a blood glucose of 331. We assessed blood pressure upon arrival to our ED was 0. Patient was declared at 10:48 AM. Timing/Duration: today Severity: severe Allergies/Adverse Reactions: No Known Drug Allergies Allergy (Verified 10/23/20 17:19) Home Medications: Simvastatin 20Mg [Zocor 20Mg] 20 mg PO DAILY 02/28/12 [History] Levothyroxine Sodium 50 Mcg [Synthroid 50 Mcg] 88 mcg PO DAILY 01/08/16 [History] Divalproex Sodium 250 mg [Divalproex DR 250 mg Tab] 3 tab PO HS 11/02/18 [History] Ferrous Sulfate 325 mg [Feosol 325 mg] 325 mg PO DAILY 11/02/18 [History] Lurasidone HCl [Latuda] 80 mg DAILY 11/02/18 [History] Venlafaxine HCl ER 75 mg [Effexor XR 75 MG] 75 mg PO 12/18/18 [History] Hx Tetanus, Diphtheria Vaccination/Date Given: Yes Hx Influenza Vaccination/Date Given: No Hx Pneumococcal Vaccination/Date Given: No - Review of Systems All Other Systems: Unable due to condition - Past Medical History Pertinent Past Medical History: Yes Neurological History: No Pertinent History ENT History: No Pertinent History Cardiac History: High Cholesterol Respiratory History: Asthma Endocrine Medical History: Hypothyroidism Musculoskeletal History: Arthritis, Fractures, Other GI Medical History: Gallbladder Disease, GI Bleed, Hemorrhoids, Other History: No Pertinent History Psycho-Social History: Bipolar, Depression Female Reproductive Disorders: No Pertinent History Other Medical History: BACK AND LEG PAIN - Past Surgical History Past Surgical History: Yes Neuro Surgical History: No Pertinent History Cardiac: No Pertinent History Respiratory: No Pertinent History Gastrointestinal: Hernia Repair Genitourinary: No Pertinent History Musculoskeletal: Orthopedic Surgery Female Surgical History: No Pertinent History Other Surgical History: right ankle - Social History Smoking Status: Never smoker Exposure to second hand smoke: Yes Alcohol Use: None Drug Use: none Patient Lives Alone: No Significant Family History: no pertinent family hx - Physical Exam General Appearance: other (Unresponsive) Eye Exam: other (Pupils fixed dilated no corneal reflex.) Ears, Nose, Throat Exam: other ( No gag reflex.) Neck Exam: normal inspection Respiratory Exam: other (No spontaneous respirations. Patient intubated and bagged) Cardiovascular Exam: other (PEA. V-fib) Gastrointestinal/Abdomen Exam: soft Extremity Exam: other (Cool to touch. Mottled. No peripheral pulses) Neurologic Exam: other (Unresponsive) Skin Exam: other (Skin is pale and mottled) O2 Delivery: Ambu-Bag - Course Nursing assessment & vital signs reviewed: Yes - Progress Progress: unchanged Progress Note: 67-year-old female presents to our ED in cardiac arrest. Downtime unknown. Patient was found unresponsive by nursing staff. Patient has been unresponsive for at least 20 minutes from the time EMS arrived till their arrival in our ED. Patient was in PEA most of the time. 1 bout of V-fib in our ED. Patient lack of gag and corneal reflexes. Skin cool and mottled. No peripheral pulses. Blood pressure undetectable. Glucose was 331. Patient pronounced by Dr. Murphy at 10:48 AM. Son notified by staff he will be coming in from [facility]. Portions of this note were created with voice recognition technology. There may be grammatical, spelling, punctuation or sound alike errors 03/18/23 10:58 Complexity of problem addressed is high severe. COPA (number of complexity of problem addressed) Minimal, Straight forward, one self limited or minor problem Low. Acute uncomplicated stable +/- admission, Any acute or chronic illness, 2 or more self-limited or minor problems. Moderate. Acute, complicated or with systemic illness. Chronic illness with exacerbation, New diagnosis with uncertain prognosis. 2 or more chronic stable illnesses. High. Any severe exacerbation or threat to bodily function, Any treatment side effects Critical care time is less than 30 minutes. No specialized testing ordered. Diagnosis made based on history and physical exam. Risk of complication and a risk of morbidity/mortality of patient management is minimal. Patient at 10:48 AM. Diagnosis is cardiovascular collapse, cardiac arrest. Underlying etiology unknown. Portions of this note were created with voice recognition technology. There may be grammatical, spelling, punctuation or sound alike errors Counseled pt/family regarding: diagnosis - Departure Departure Disposition: Clinical Impression: Cardiovascular collapse, Cardiac arrest Condition: Stable Critical Care Time: No Referrals: ENVIVE,ENVIVE [Primary Care Provider] - Follow up/PCP as directed
== END 2023-03-18 14:45 | disposition expired ==
LOC: ED 10:44
DX: I46.9 Cardiac arrest, cause unspecified (principal); R57.0 Cardiogenic shock
CPT/HCPCS: 94799; 99281